=== PATIENT | male | born 1945 | race Caucasian/White ===

== ENCOUNTER 2016-12-11 18:57 | Emergency (ER) | payer OTHER ==
[2016-12-11 19:03] VITALS: BP 197/101; BMI 38.7
--- NOTE | 2016-12-11 19:31 | DR.GENAD ---
HPI - HPI Comment HPI Comment: SUDDENLY STARTED FEW HOURS AGO. NO MED TAKEN. NO FEVER OR DYSURAI. - Complaint/Symptoms Chief Complaint Doctors Comments: LEFT FLANK PAIN RADIATING TO LEFT LOWER ABDOMEN. Chief Complaint:: PT C/O BACK PAIN RADIATING TO HIS LLQ. NAUSEA BUT NO VOMITING. - Nurses notes reviewed Nurses Notes Review: Yes - Source History Provided: Patient - Mode of Arrival Mode of Arrival: Ambulatory - Timing Onset of Chief Complaint: 12/11/16 Came on: Suddenly - Duration Duration: Constant Duration: Hours - Severity Severity: Moderate PMH - PMH Past Medical History: Yes Past Medical History: Dyslipidemia, Hypertension Past Surgical History: No - Family History History of Family Medical Conditions: Yes Family Medical History: Diabetes Mellitus, Cancer, [place], Hypertension - infectious screening Have you traveled outside the country in the last 6 months?: No ROS - Review of Systems Constitutional: No Symptoms Reported Eyes: No Symptoms Reported ENTM: No Symptoms Reported Respiratoy: No Symptoms Reported Cardiovascular: No Symptoms Reported Genitourinary: No Symptoms Reported Neurological: No Symptoms Reported Musculoskeletal: Back Pain, Back Integumentary: No Symptoms Reported Hematologic/Lymphatic: No Symptoms Reported Endocrine: No Symptoms Reported All Other Systems: Reviewed and Negative PE - Vital Signs Vitals: Temperature 97.5 F Pulse Rate 78 Respiratory Rate 18 Blood Pressure 197/101 O2 Sat by Pulse Oximetry 98 - General Limitations: No Limitations General Appearance: Alert - Head Head Exam: Normal Inspection - Eyes Eye exam: Normal Appearance - ENT ENT Exam: Normal External Ear Exam External Ear Exam: Normal External Inspection TM/Canal Exam: Bilateral Normal Nose Exam: Normal Nose Exam Mouth Exam: Normal Inspection Throat Exam: Normal Inspection - Neck Neck Exam: Normal Inspection - Chest Chest Inspection: Symmetric Chest Wall Rise - Respiratory Respiratory Exam: Normal Lung Sounds Bilat Respiratory Exam: Bilateral Clear to Auscultation - Cardiovascular Cardiovascular Exam: Regular Rate, Normal Rhythm, Normal Heart Sounds - Abdominal Exam Abdominal Exam: Normal Bowel Sounds, Soft. negative: Tenderness - Extremities Extremities Exam: Normal Inspection - Back Back Exam: Normal Inspection - Neurologic Neurological Exam: Alert, Oriented X3 - Psychiatric Psychiatric Exam: Anxious - Skin Skin Exam: Normal Color MDM - Additional Information Additional Information Obtained From: Family - Differential Diagnosis Differential Diagnosis: LEFT FLANK PAIN, KIDNEY STONE, UTI Course - Treatment Treatment: SEE ORDER. IV FLUIDS AND IVPAIN MED IN ED. - Reevaluation 1st: Improved - Education/Counseling Education/Counseling: Patient, Family, Education Educated On: Treatment, Diagnosis, Needs for Follow Up ROR - Labs Reviewed Laboratory Results Reviewed?: Yes Result Diagrams: 12/11/16 19:52 12/11/16 19:52 Laboratory: WBC 9.9 X10^3/uL (3.6-10.0) 12/11/16 19:52 RBC 5.04 X10^6/uL (4.7-6.0) 12/11/16 19:52 Hgb 15.1 g/dL (13.5-18.0) 12/11/16 19:52 Hct 42.8 % (42.0-54.0) 12/11/16 19:52 MCV 84.9 fL (80.0-100.0) 12/11/16 19:52 MCH 30.0 pg (27.0-34.0) 12/11/16 19:52 MCHC 35.3 g/dL (33.0-35.0) H 12/11/16 19:52 RDW 13.2 % (11.6-16.5) 12/11/16 19:52 Plt Count 187 X10^3/uL (150.0-450.0) 12/11/16 19:52 MPV 7.6 fL (7.4-11.0) 12/11/16 19:52 Neut % 76.2 % (42.0-75.0) H 12/11/16 19:52 Lymph % 14.6 % (21.0-51.0) L 12/11/16 19:52 [place] % 6.3 % (0.0-13.0) 12/11/16 19:52 Eos % 2.2 % (0.9-2.9) 12/11/16 19:52 Baso % 0.7 % (0.2-1.0) 12/11/16 19:52 Neut # 7.6 x10^3/uL (2.2-4.8) H 12/11/16 19:52 Lymph # 1.5 X10^3/uL (1.3-2.9) 12/11/16 19:52 [place] # 0.6 x10^3/uL (0.3-0.8) 12/11/16 19:52 Eos # 0.2 x10^3/uL (0.0-0.2) 12/11/16 19:52 Baso # 0.1 X10^3/uL (0.0-0.1) 12/11/16 19:52 Absolute Nucleated RBC 0.1 /100WBC 12/11/16 19:52 Sodium 141 mmol/L (136-145) 12/11/16 19:52 Corrected Sodium 142 mmol/L (136-145) 12/11/16 19:52 Potassium 4.0 mmol/L (3.5-5.1) 12/11/16 19:52 Chloride 105 mmol/L (98-107) 12/11/16 19:52 Carbon Dioxide 29.5 mmol/L (21-32) 12/11/16 19:52 BUN 18 mg/dL (7-18) 12/11/16 19:52 Creatinine 1.28 mg/dL (0.70-1.30) 12/11/16 19:52 Est GFR (MDRD) Af Amer > 60 (>60) 12/11/16 19:52 Est GFR (MDRD) Non-Af 59 (>60) 12/11/16 19:52 Glucose 147 mg/dL (65-99) H 12/11/16 19:52 Calcium 8.9 mg/dL (8.5-10.1) 12/11/16 19:52 Corrected Calcium TNP 12/11/16 19:52 Total Bilirubin 1.00 mg/dL (0.2-1.0) 12/11/16 19:52 AST 28 Units/L (15-37) 12/11/16 19:52 ALT 47 Units/L (12-78) 12/11/16 19:52 Alkaline Phosphatase 59 Units/L (46-116) 12/11/16 19:52 Total Protein 7.3 g/dL (6.4-8.2) 12/11/16 19:52 Albumin 3.8 g/dL (3.4-5.0) 12/11/16 19:52 Globulin 3.5 g/dL (2.5-4.5) 12/11/16 19:52 Albumin/Globulin Ratio 1.1 Ratio (1.1-2.1) 12/11/16 19:52 Specimen Type Clean catch urine 12/11/16 19:52 Urine Color [place] (YELLOW) 12/11/16 19:52 Urine Appearance Slightly hazy (CLEAR) 12/11/16 19:52 Urine pH 6.0 (5.0 - 8.0) 12/11/16 19:52 Ur Specific [place] 1.020 (1.000-1.030) 12/11/16 19:52 Urine Protein 2+ (NEGATIVE) 12/11/16 19:52 Urine Glucose (UA) Negative (NEGATIVE) 12/11/16 19:52 Urine Ketones Negative (NEGATIVE) 12/11/16 19:52 Urine Occult Blood 5+ (NEGATIVE) 12/11/16 19:52 Urine Nitrite Negative (NEGATIVE) 12/11/16 19:52 Urine Bilirubin Negative (NEGATIVE) 12/11/16 19:52 Urine Urobilinogen 2+ (NORMAL) 12/11/16 19:52 Ur Leukocyte Esterase 1+ (NEGATIVE) 12/11/16 19:52 Urine RBC Tntc /HPF (NEGATIVE) 12/11/16 19:52 Urine WBC 0-3 /HPF (NEGATIVE) 12/11/16 19:52 Ur Squamous Epith Cells Rare /HPF (NEGATIVE) 12/11/16 19:52 Urine Bacteria Trace /HPF (NEGATIVE) 12/11/16 19:52 Urine Mucus Moderate /HPF (NEGATIVE) 12/11/16 19:52 Ur Culture Indicated? No/not indicated 12/11/16 19:52 - XRAY XRAY Interpreted by: Radiologist XRAY Findings: REPORT DISCUSS WITH PATIENT. - Diagnosis Discharge Problem: Left flank pain, Left ureteral stone - Discharge Plan Disposition: 01 HOME, SELF-CARE Condition: Stable Prescriptions: Hydrocodone/Acetaminophen [Hydrocodone/Acetaminophen 7.5-325 mg] 1 tab PO Q6H PRN #15 tab PRN Reason: Pain Ketorolac Tromethamine [Toradol Tab] 10 mg PO Q8H PRN #20 tab PRN Reason: Pain Tamsulosin HCl [Flomax] 0.4 mg PO DAILY #10 cap - Follow ups/Referrals Follow ups/Referrals: FANNY PINZON [Primary Care Provider] - 3 days - Instructions Instructions: Kidney Stones, [id number] Additional Instructions: RETURN TO ED IF WORSE. SEE DR. MORILLO IN THE MORNING. YISEL OFFICE NUMBER .
[2016-12-11] MEDS ORDERED: ZOFRAN INJ 4 MG VIAL IVP ONE (19:45)
[2016-12-11] MEDS ORDERED: NS 1000 ML 1,000 ML ONE (19:45)
[2016-12-11] MEDS ORDERED: TORADOL 30 MG VIAL IVP ONE (19:45)
[2016-12-11] MEDS ORDERED: NS 1000 ML 1,000 ML IV ONE (19:46)
[2016-12-11] MEDS ORDERED: ZOFRAN INJ 4 MG VIAL ONE (19:57)
[2016-12-11] MEDS ORDERED: TORADOL 30 MG VIAL ONE (19:57)
[2016-12-11 20:05] LABS: BASOPHILS # (AUTO) 0.1 X10^3/uL (0.0-0.1); BASOPHILS % (AUTO) 0.7 % (0.2-1.0); EOSINOPHILS # (AUTO) 0.2 x10^3/uL (0.0-0.2); EOSINOPHILS % (AUTO) 2.2 % (0.9-2.9); HEMATOCRIT 42.8 % (42.0-54.0); HEMOGLOBIN 15.1 g/dL (13.5-18.0); LYMPHOCYTES # (AUTO) 1.5 X10^3/uL (1.3-2.9); LYMPHOCYTES % (AUTO) 14.6 % (21.0-51.0); MEAN CORPUSCULAR HGB CONC 35.3 g/dL (33.0-35.0); MEAN CORPUSCULAR VOLUME 84.9 fL (80.0-100.0); MEAN PLATELET VOLUME 7.6 fL (7.4-11.0); MONOCYTES # (AUTO) 0.6 x10^3/uL (0.3-0.8); MONOCYTES % (AUTO) 6.3 % (0.0-13.0); NEUTROPHILS # (AUTO) 7.6 x10^3/uL (2.2-4.8); NEUTROPHILS % (AUTO) 76.2 % (42.0-75.0); PLATELET COUNT 187 X10^3/uL (150.0-450.0); RED BLOOD COUNT 5.04 X10^6/uL (4.7-6.0); RED CELL DISTRIBUTION WIDTH 13.2 % (11.6-16.5); WHITE BLOOD COUNT 9.9 X10^3/uL (3.6-10.0)
[2016-12-11 20:06] LABS: BILIRUBIN,URINE NEGATIVE (NEGATIVE); BLOOD/HEMOGLOBIN,URINE 5+ (NEGATIVE); GLUCOSE, URINE NEGATIVE (NEGATIVE); KETONES,URINE NEGATIVE (NEGATIVE); LEUKOCYTE ESTERASE ,URINE 1+ (NEGATIVE); NITRITES,URINE NEGATIVE (NEGATIVE); PROTEIN,URINE 2+ (NEGATIVE); UROBILINOGEN,URINE 2+ (NORMAL)
[2016-12-11 20:17] LABS: ALANINE AMINOTRANSFERASE 47 Units/L (12-78); ALBUMIN 3.8 g/dL (3.4-5.0); ALKALINE PHOSPHATASE 59 Units/L (46-116); ASPARTATE AMINO TRANSFERASE 28 Units/L (15-37); BLOOD UREA NITROGEN 18 mg/dL (7-18); CALCIUM 8.9 mg/dL (8.5-10.1); CARBON DIOXIDE 29.5 mmol/L (21-32); CHLORIDE 105 mmol/L (98-107); COR NA(FOR HYPERGLY) 142 mmol/L (136-145); CREATININE 1.28 mg/dL (0.70-1.30); SODIUM 141 mmol/L (136-145); TOTAL PROTEIN 7.3 g/dL (6.4-8.2); eGFR BLACK RACES > 60 (>60); eGFR NON BLACK RACES 59 (>60)
[2016-12-11 20:22] LABS: APPEARANCE,URINE SLIGHTLY HAZY (CLEAR); COLOR,URINE AMBER (YELLOW); RBC,URINE TNTC /HPF (NEGATIVE)
[2016-12-11 20:23] LABS: BACTERIA,URINE TRACE /HPF (NEGATIVE); MUCUS,URINE MODERATE /HPF (NEGATIVE); SQUAMOUS EPITHELIAL CELL,UR RARE /HPF (NEGATIVE)
--- NOTE | 2016-12-11 20:40 | CT ---
HISTORY: Left flank pain Study: CT abdomen pelvis without contrast Comparison: None Technique: Axial noncontrast images with coronal and sagittal reformats. Dose reduction procedures we re used with mA/kv adjusted for body size. Findings: The lung bases are clear. The liver, spleen, adrenal glands, and pancreas are within normal limits to the limitations of an unenhanced examination. No opaque stones are visible within the gallbladder. T he right kidney is unobstructed and without stones. No right ureteral calculi are identified. There i s mild left-sided hydroureteronephrosis proximal to a 2 mm calculus located about 2 cm proximal to th e left ureterovesical junction. No intraperitoneal or retroperitoneal lymphadenopathy of significance is present. Calcific atherosclerotic change is present in a nondilated abdominal aorta. The appendix is normal. There are no findings suggestive of diverticulitis or colitis. Examination of the pelvis demonstrated no evidence for pelvic masses, pelvic fluid, or pelvic lymphadenopathy. No bladder abnor mality is identified. No lytic or blastic skeletal lesions are identified. IMPRESSION: 2 mm obstructing distal left ureteral calculus located approximately 2 cm proximal to the left ureter ovesical junction Reported By:
[2016-12-11] MEDS ORDERED: DEMEROL INJ IVP ONE (21:52)
[2016-12-11] MEDS ORDERED: FLOMAX PO ONE (21:55)
[2016-12-11] MEDS ORDERED: DEMEROL INJ ONE (21:56)
== END 2016-12-11 22:25 | disposition home or self-care (01) ==
LOC: ER 19:16
DX: N20.1 Calculus of ureter (principal); R10.84 Generalized abdominal pain
CPT/HCPCS: 36415; 74176; 80053; 81001; 85025; 96365; 96374; 96375; 99283; A4222; J1885; J2175; J2405

== ENCOUNTER 2017-06-21 20:30 | Inpatient (IN) | payer OTHER ==
[2017-06-21] MEDS ORDERED: ROCEPHIN 1 GM IV PREMIX 1 GM/50 ML IV.SOLN. IV ONE ×2 (21:18→21:28)
--- NOTE | 2017-06-21 21:21 | DR.GENAD ---
HPI - PCP Primary Care Physician: Fanny ColónSimonton) - Complaint/Symptoms Chief Complaint Doctors Comments: Patient states he was sent from [facility] for an abscess on his right thigh and new onset Atrial fribrillation. States he has had an abscess in the right groing for the past seven days getting worst with pain when he moves his right leg and walk. States he saw his doctor 2-3 days ago and he told him he has a pulled muscle . States he has not been taking any antibiotics. States he has been having chills but no fever. He has had a cough with increased congestion. States he drinks about a gallon of sweat tea bernardo but denies tobacco or alcohol usage. States he has not had any problems with his heart before but has had a stress test two years ago that was normal. States he has had a 81mg aspirin today. Chief Complaint:: C/O being weak and sleeping a lot these last couple of days - Nurses notes reviewed Nurses Notes Review: Yes - Source History Provided: Patient - Mode of Arrival Mode of Arrival: Ambulatory - Timing Onset of Chief Complaint: 06/19/17 Came on: Gradually - Duration Duration: Constant How lon Duration: Days - Location Location: right groin lesion - Severity Severity: Moderate - Modifying Factors Worsens:: walking and standing Improves:: nothing PMH - PMH Past Medical History: Yes Past Medical History: Dyslipidemia, Hypertension Past Surgical History: No - Family History History of Family Medical Conditions: Yes Family Medical History: Diabetes Mellitus, Cancer, Coronary Artery Disease, Hypertension - Social History Does patient currently use any type of tobacco product: No Have you used tobacco products in the last 12 months: No Type of Tobacco Use: None How many years tobacco product used: 30 Does any household member use tobacco: No Alcohol Use: None Do you use any recreational Drugs:: No Lives With: Family Lives Where: Home - infectious screening In the last 2 months have you had wt loss of >10#?: NO Have you had fever, night sweats or hemotysis?: No Have you traveled outside the country in the last 6 months?: No Isolation: Standard ROS - Review of Systems Constitutional: No Symptoms Reported, Chills, Weakness. negative: See HPI, Diaphoresis, Fever, Malaise, Irritable, Fatigue, Loss of Appetite, Other Eyes: No Symptoms Reported. negative: See HPI, Eye Pain, Blurred Vision, Tearing, Discharge, Photophobia, Diplopia, Other ENTM: No Symptoms Reported Respiratoy: Productive Cough, Short of Breath. negative: No Symptoms Reported, See HPI, Non-Productive Cough, Moist Cough, Dry Cough, Hacking Cough, Barking Cough, Brassy Cough, Orthopnea, Stridor, Wheezing, Hemoptysis, Other Cardiovascular: No Symptoms Reported. negative: See HPI, Chest Pain, Edema, Palpitations, Syncope, Cyanosis, Skin Mottling, Other Gastrointestinal/Abdominal: No Symptoms Reported. negative: See HPI, Abdominal Pain, Constipation, Diarrhea, Nausea, Vomiting, Food Intolerance, Other Genitourinary: No Symptoms Reported. negative: See HPI, Discharge, Dysuria, Frequency, Hematuria, Pain, Bleeding, Other Neurological: No Symptoms Reported, Weakness, Problems Walking (right leg and groin pain). negative: See HPI, Anxiety, Depressed, Emotional Problems, Headache, Numbness, Paresthesia, Pre-existing Deficit, Seizure, Tingling, Tremors, Dizziness, Speech Problem, Other Musculoskeletal: No Symptoms Reported, Right, Pelvis (swelling) Integumentary: No Symptoms Reported, Lumps (right groin swelling) Hematologic/Lymphatic: No Symptoms Reported. negative: See HPI, Anemia, Blood Clots, Easy Bleeding, Easy Bruising, Swollen Glands, Lymphadenopathy, Other Endocrine: No Symptoms Reported. negative: See HPI, Excessive Sweating, Flushing, Intolerance to Cold, Intolerance to Heat, Increased Hunger, Increased Thirst, Increased Urine, Unexplained Weight Gain, Unexplained Weight Loss, Failure to Thrive, Decreased Appetite, Other Psychiatric: No Symptoms Reported. negative: See HPI, Anxiety, Depression, Hallucinations, Excessive crying, Suicidal, Other PE - Vital Signs Vitals: Temperature 99.6 F Pulse Rate 135 Respiratory Rate 24 Blood Pressure 141/80 O2 Sat by Pulse Oximetry 94 - General Limitations: No Limitations General Appearance: Alert, In Distress (moderate) - Head Head Exam: Normal Inspection, Atraumatic, Normocephalic - Eyes Eye exam: Normal Appearance, PERRL, EOMI. negative: Scleral Icterus, Conjunctival Injection, Nystagmus, Miosis, Mydrasis, Periorbital Swelling, Periorbital Tenderness, Other - ENT ENT Exam: Normal Exam, Normal Oropharynx, Normal External Ear Exam, Mucous Membranes Moist, TM's Normal Bilaterally External Ear Exam: Normal External Inspection TM/Canal Exam: Bilateral Normal Nose Exam: Normal Nose Exam Mouth Exam: Normal Inspection. negative: Drooling, Trismus, Lip Swelling, Tongue Elevation, Tongue Swelling, Laceration, Other Throat Exam: Normal Inspection. negative: Tonsillar Erythema, Tonsillomegaly, Tonsillar Exudate, R Peritonsillar Mass, L Peritonsillar Mass, Muffled Voice, Other - Neck Neck Exam: Normal Inspection, Full ROM, Trachea Midline. negative: Tenderness, Meningismus, Lymphadenopathy, Thyromegaly, Other - Chest Chest Inspection: Normal Inspection, Symmetric Chest Wall Rise - Respiratory Respiratory Exam: Normal Lung Sounds Bilat. negative: Accessory Muscle Use, Chest Wall Tenderness, Prolonged Expiratory Phase, Respiratory Distress, Stridor , Other Respiratory Exam: Bilateral Clear to Auscultation - Cardiovascular Cardiovascular Exam: Regular Rate, Normal Rhythm, Irregular Rhythm, Normal Heart Sounds, Systolic Murmur. negative: Bradycardia, Tachycardia, Diastolic Murmur, Rubs, Gallop, Clicks, JVD, +S1, +S2, +S3, +S4, Other - Abdominal Exam Abdominal Exam: Normal Inspection, Normal Bowel Sounds, Soft, Tenderness (right groing with large 7-8 cm erythema with bullous lesion in center 4-5 cm; tender; no discharge) Abdominal Tenderness: RLQ, Moderate - Extremities Extremities Exam: Normal Inspection, Full ROM, Tenderness (right groing abscess ; tender), Normal Capillary Refill. negative: Edema, Joint Swelling, Calf Tenderness, Other - Back Back Exam: Normal Inspection, Full ROM, Tenderness. negative: (R) CVA Tenderness, (L) CVA Tenderness, Muscle Spasm, Paraspinal Tenderness, Vertebral Tenderness, Rashes, (R) Sciatic Notch Tenderness, (L) Sciatic Notch Tendern, (R ) Straight Leg Raise, (L) Straight Leg Raise, Other - Neurologic Neurological Exam: Alert, Oriented X3, CN II-XII Intact, Reflexes Normal. negative: Normal Gait (gait not tested) - Psychiatric Psychiatric Exam: Normal Affect, Normal Mood. negative: Depressed, Agitated, Anxious, Flat Affect, Manic, Homicidal Ideation, Suicidal Ideation, Other - Skin Skin Exam: Warm, Dry, Intact, Normal Color Course - Consultation Called: 00:19 Call Returned: 00:19 (Dr. Shaw to admit) - Education/Counseling Education/Counseling: Patient, Family Educated On: Treatment, Diagnosis, Prognosis, Needs for Follow Up ROR - Labs Reviewed Laboratory Results Reviewed?: Yes (all labs and x-ray results reviewed and discussed with patient) Result Diagrams: 06/21/17 21:28 06/21/17 21: Laboratory: WBC 19.5 X10^3/uL (3.6-10.0) H 06/21/17 21: RBC 4.79 X10^6/uL (4.7-6.0) 06/21/17 21:28 Hgb 14.3 g/dL (13.5-18.0) 06/21/17 21:28 Hct 40.5 % (42.0-54.0) L 06/21/17 21: MCV 84.6 fL (80.0-100.0) 06/21/17 21: MCH 29.9 pg (27.0-34.0) 06/21/17 21: MCHC 35.4 g/dL (33.0-35.0) H 06/21/17 21: RDW 13.3 % (11.6-16.5) 06/21/17 21:28 Plt Count 282 X10^3/uL (150.0-450.0) 06/21/17 21: MPV 7.5 fL (7.4-11.0) 06/21/17 21:28 Neut % (Auto) 79.9 % (42.0-75.0) H 06/21/17 21: Lymph % (Auto) 9.4 % (21.0-51.0) L 06/21/17 21:28 [place] % (Auto) 9.4 % (0.0-13.0) 06/21/17 21:28 Eos % (Auto) 0.7 % (0.9-2.9) L 06/21/17 21:28 Baso % (Auto) 0.6 % (0.2-1.0) 06/21/17 21:28 Neut # (Auto) 15.6 x10^3/uL (2.2-4.8) H 06/21/17 21:28 Lymph # (Auto) 1.8 X10^3/uL (1.3-2.9) 06/21/17 21:28 [place] # (Auto) 1.8 x10^3/uL (0.3-0.8) H 06/21/17 21:28 Eos # (Auto) 0.1 x10^3/uL (0.0-0.2) 06/21/17 21:28 Baso # (Auto) 0.1 X10^3/uL (0.0-0.1) 06/21/17 21:28 Absolute Nucleated RBC 0.0 /100WBC 06/21/17 21:28 INR Target Range - 06/21/17 21:28 INR 1.21 (0.8-1.3) 06/21/17 21:28 APTT 36.5 SECONDS (22.9-36.5) 06/21/17 21:28 PTT Comment - 06/21/17 21:28 Sodium 135 mmol/L (136-145) L 06/21/17 21:28 Corrected Sodium 136 mmol/L (136-145) 06/21/17 21:28 Potassium 3.6 mmol/L (3.5-5.1) 06/21/17 21:28 Chloride 98 mmol/L (98-107) 06/21/17 21:28 Carbon Dioxide 24.5 mmol/L (21-32) 06/21/17 21:28 BUN 26 mg/dL (7-18) H 06/21/17 21:28 Creatinine 1.47 mg/dL (0.70-1.30) H 06/21/17 21:28 Est GFR (MDRD) Af Amer > 60 (>60) 06/21/17 21:28 Est GFR (MDRD) Non-Af 50 (>60) L 06/21/17 21:28 Glucose 153 mg/dL (65-99) H 06/21/17 21:28 Lactic Acid 1.7 mmol/L (0.4-2.0) 06/21/17 21:28 Calcium 8.9 mg/dL (8.5-10.1) 06/21/17 21:28 Corrected Calcium 9.5 mg/dL (8.5-10.1) 06/21/17 21:28 Magnesium 1.9 mg/dL (1.7-2.9) 06/21/17 21:28 Total Bilirubin 2.00 mg/dL (0.2-1.0) H 06/21/17 21:28 AST 17 Units/L (15-37) 06/21/17 21:28 ALT 24 Units/L (12-78) 06/21/17 21:28 Alkaline Phosphatase 58 Units/L (46-116) 06/21/17 21:28 Creatine Kinase 156 Units/L (39-308) 06/21/17 21:28 CK-MB (CK-2) < 1.0 ng/mL (0-4.0) 06/21/17 21:28 CK/CKMB % Calc 0.6 % (<4) 06/21/17 21:28 Troponin I < 0.02 ng/mL (0-1.5) 06/21/17 21:28 Total Protein 8.1 g/dL (6.4-8.2) 06/21/17 21:28 Albumin 3.2 g/dL (3.4-5.0) L 06/21/17 21:28 Globulin 4.9 g/dL (2.5-4.5) H 06/21/17 21:28 Albumin/Globulin Ratio 0.7 Ratio (1.1-2.1) L 06/21/17 21:28 Free T4 1.28 ng/dL (0.76-1.46) 06/21/17 21:28 TSH 3rd Generation 1.877 uIU/mL (0.358-3.74) 06/21/17 21:28 - XRAY XRAY Interpreted by: Radiologist (CXR: Cardiomegaly without other acute cardiopulmonary process) - Diagnosis Discharge Problem: Cellulitis of right thigh, Abscess of right thigh, Hyperglycemia Atrial fibrillation Qualifiers: Atrial fibrillation type: unspecified Qualified Code(s): I48.91 - Unspecified atrial fibrillation - Discharge Plan Disposition: ADMITTED INPATIENT Condition: Stable - Follow ups/Referrals Follow ups/Referrals: FANNY PINZON [Primary Care Provider] - 3 days - Instructions
--- NOTE | 2017-06-21 21:28 | RAD ---
HISTORY: 71-year-old male with weakness and lethargy. Patient complains of chest pain. Study: Frontal view of the chest. Comparison: None. Findings: Study limited secondary to patient positioning and body habitus. The trachea is midline. The cardiac silhouette is enlarged with low lung volumes. The lungs are brianna ar without focal consolidation, effusion or pneumothorax. Soft tissues are unremarkable. Osseous str uctures are unremarkable. IMPRESSION: 1. Cardiomegaly without other acute cardiopulmonary process. Reported By:
[2017-06-21] MEDS: NS 1000 ML 1,000 ML IV SCH (21:35)
[2017-06-21 21:45] LABS: BASOPHILS # (AUTO) 0.1 X10^3/uL (0.0-0.1); BASOPHILS % (AUTO) 0.6 % (0.2-1.0); EOSINOPHILS # (AUTO) 0.1 x10^3/uL (0.0-0.2); EOSINOPHILS % (AUTO) 0.7 % (0.9-2.9); HEMATOCRIT 40.5 % (42.0-54.0); HEMOGLOBIN 14.3 g/dL (13.5-18.0); LYMPHOCYTES # (AUTO) 1.8 X10^3/uL (1.3-2.9); LYMPHOCYTES % (AUTO) 9.4 % (21.0-51.0); MEAN CORPUSCULAR HEMOGLOBIN 29.9 pg (27.0-34.0); MEAN CORPUSCULAR HGB CONC 35.4 g/dL (33.0-35.0); MEAN CORPUSCULAR VOLUME 84.6 fL (80.0-100.0); MEAN PLATELET VOLUME 7.5 fL (7.4-11.0); MONOCYTES # (AUTO) 1.8 x10^3/uL (0.3-0.8); MONOCYTES % (AUTO) 9.4 % (0.0-13.0); NEUTROPHILS # (AUTO) 15.6 x10^3/uL (2.2-4.8); NEUTROPHILS % (AUTO) 79.9 % (42.0-75.0); PLATELET COUNT 282 X10^3/uL (150.0-450.0); RED BLOOD COUNT 4.79 X10^6/uL (4.7-6.0); RED CELL DISTRIBUTION WIDTH 13.3 % (11.6-16.5); WHITE BLOOD COUNT 19.5 X10^3/uL (3.6-10.0)
[2017-06-21 22:06] LABS: BLOOD UREA NITROGEN 26 mg/dL (7-18); CALCIUM 8.9 mg/dL (8.5-10.1); CARBON DIOXIDE 24.5 mmol/L (21-32); CHLORIDE 98 mmol/L (98-107); COR NA(FOR HYPERGLY) 136 mmol/L (136-145); CREATININE 1.47 mg/dL (0.70-1.30); SODIUM 135 mmol/L (136-145); TROPONIN I < 0.02 ng/mL (0-1.5); eGFR BLACK RACES > 60 (>60); eGFR NON BLACK RACES 50 (>60)
[2017-06-21 22:07] LABS: ALANINE AMINOTRANSFERASE 24 Units/L (12-78); ALBUMIN 3.2 g/dL (3.4-5.0); ALKALINE PHOSPHATASE 58 Units/L (46-116); ASPARTATE AMINO TRANSFERASE 17 Units/L (15-37); CKMB % 0.6 % (<4); COR CA(FOR HYPOALB) 9.5 mg/dL (8.5-10.1); CREATINE KINASE 156 Units/L (39-308); CREATINE KINASE MB < 1.0 ng/mL (0-4.0); FREE T4 (FREE THYROXINE) 1.28 ng/dL (0.76-1.46); MAGNESIUM 1.9 mg/dL (1.7-2.9); TOTAL PROTEIN 8.1 g/dL (6.4-8.2); TSH (3RD GENERATION) 1.877 uIU/mL (0.358-3.74)
[2017-06-22] MEDS ORDERED: LOVENOX INJ 120 MG SYR SC STA (00:13)
[2017-06-22] MEDS ORDERED: LOVENOX INJ 120 MG SYR SC ONE (00:17)
[2017-06-22] MEDS ORDERED: PHENERGAN TAB 25 MG PO PRN (00:43)
[2017-06-22] MEDS ORDERED: HumuLIN R SC PRN (00:47)
[2017-06-22] MEDS ORDERED: VANCOMYCIN HCL 1 GM VIAL 1 GM in D5W 250 ML IV 250 ML IV SCH (01:00)
[2017-06-22 02:32] VITALS: BMI 39.6
[2017-06-22] MEDS ORDERED: NS 1/2 1000 ML IV 1,000 ML IV ONE ×2 (02:32→17:25)
[2017-06-22] MEDS: NS 1/2 1000 ML IV 1,000 ML IV SCH ×3 (03:57→17:33)
[2017-06-22] MEDS ORDERED: VANCOMYCIN 1 GM PREMIX (ADDVANTAGE) 250 ML IV ONE (04:00)
[2017-06-22 06:04] LABS: BILIRUBIN,URINE NEGATIVE (NEGATIVE); BLOOD/HEMOGLOBIN,URINE NEGATIVE (NEGATIVE); GLUCOSE, URINE NEGATIVE (NEGATIVE); KETONES,URINE 1+ (NEGATIVE); LEUKOCYTE ESTERASE ,URINE NEGATIVE (NEGATIVE); NITRITES,URINE NEGATIVE (NEGATIVE); PROTEIN,URINE 1+ (NEGATIVE); UROBILINOGEN,URINE 1+ (NORMAL)
[2017-06-22 06:08] LABS: BASOPHILS # (AUTO) 0.1 X10^3/uL (0.0-0.1); BASOPHILS % (AUTO) 0.6 % (0.2-1.0); EOSINOPHILS # (AUTO) 0.2 x10^3/uL (0.0-0.2); HEMATOCRIT 38.4 % (42.0-54.0); HEMOGLOBIN 13.7 g/dL (13.5-18.0); LYMPHOCYTES # (AUTO) 2.3 X10^3/uL (1.3-2.9); LYMPHOCYTES % (AUTO) 13.9 % (21.0-51.0); MEAN CORPUSCULAR HEMOGLOBIN 30.1 pg (27.0-34.0); MEAN CORPUSCULAR HGB CONC 35.7 g/dL (33.0-35.0); MEAN CORPUSCULAR VOLUME 84.4 fL (80.0-100.0); MEAN PLATELET VOLUME 8.1 fL (7.4-11.0); MONOCYTES # (AUTO) 1.3 x10^3/uL (0.3-0.8); NEUTROPHILS # (AUTO) 12.5 x10^3/uL (2.2-4.8); NEUTROPHILS % (AUTO) 76.5 % (42.0-75.0); PLATELET COUNT 237 X10^3/uL (150.0-450.0); RED BLOOD COUNT 4.55 X10^6/uL (4.7-6.0); RED CELL DISTRIBUTION WIDTH 13.2 % (11.6-16.5); WHITE BLOOD COUNT 16.4 X10^3/uL (3.6-10.0)
[2017-06-22 06:11] LABS: APPEARANCE,URINE CLEAR (CLEAR); BACTERIA,URINE NEGATIVE /HPF (NEGATIVE); COLOR,URINE AMBER (YELLOW); RBC,URINE 0-2 /HPF (NONE SEEN); SQUAMOUS EPITHELIAL CELL,UR RARE /HPF (NEGATIVE)
[2017-06-22] MEDS: MORPHINE SULFATE INJ 2 MG INJ IVP PRN ×2 (06:13→17:28)
[2017-06-22] MEDS: ZOSYN VIAL 3.375 GM 3.375 GM in NS 100 ML IV + SPIKE MINIBAG* 100 ML IV SCH ×3 (06:13→21:20)
[2017-06-22 06:29] LABS: ALANINE AMINOTRANSFERASE 23 Units/L (12-78); ALBUMIN 2.8 g/dL (3.4-5.0); ALKALINE PHOSPHATASE 58 Units/L (46-116); ASPARTATE AMINO TRANSFERASE 16 Units/L (15-37); BLOOD UREA NITROGEN 25 mg/dL (7-18); CALCIUM 8.3 mg/dL (8.5-10.1); CARBON DIOXIDE 23.5 mmol/L (21-32); CHLORIDE 101 mmol/L (98-107); COR CA(FOR HYPOALB) 9.3 mg/dL (8.5-10.1); COR NA(FOR HYPERGLY) 136 mmol/L (136-145); CREATININE 1.18 mg/dL (0.70-1.30); SODIUM 136 mmol/L (136-145); TOTAL PROTEIN 7.5 g/dL (6.4-8.2); eGFR BLACK RACES > 60 (>60); eGFR NON BLACK RACES > 60 (>60)
[2017-06-22] MEDS ORDERED: XYLOCAINE 1 % (PLAIN) ONE (11:08)
--- NOTE | 2017-06-22 11:47 | OR.GENERIC ---
Post-Op Note Generic - Post-Op Note Operative Report: I & D of Rt groin abscess was done at bedside .. large amount of purulent material was evacuated and cultured.. the cavity was packed with iodoform .. to change dressing daily and as needed .
[2017-06-22] MEDS: VANCOMYCIN HCL 1 GM VIAL 1 GM in D5W 250 ML IV 250 ML IV SCH (17:30)
[2017-06-22] MEDS: LOVENOX INJ 60 MG SYR SC SCH (21:21)
[2017-06-22] MEDS: MOTRIN TAB 600 MG PO PRN (21:22)
[2017-06-23] MEDS ORDERED: NS 1/2 1000 ML IV 1,000 ML IV ONE ×2 (02:04→20:34)
[2017-06-23] MEDS: VANCOMYCIN HCL 1 GM VIAL 1 GM in D5W 250 ML IV 250 ML IV SCH ×2 (03:48→17:41)
[2017-06-23] MEDS: NS 1/2 1000 ML IV 1,000 ML IV SCH ×3 (03:48→20:41)
[2017-06-23 05:37] LABS: ALANINE AMINOTRANSFERASE 28 Units/L (12-78); ALBUMIN 2.8 g/dL (3.4-5.0); ALKALINE PHOSPHATASE 55 Units/L (46-116); ASPARTATE AMINO TRANSFERASE 19 Units/L (15-37); BLOOD UREA NITROGEN 19 mg/dL (7-18); CALCIUM 8.5 mg/dL (8.5-10.1); CARBON DIOXIDE 27.9 mmol/L (21-32); CHLORIDE 100 mmol/L (98-107); COR CA(FOR HYPOALB) 9.5 mg/dL (8.5-10.1); COR NA(FOR HYPERGLY) 138 mmol/L (136-145); CREATININE 1.25 mg/dL (0.70-1.30); SODIUM 137 mmol/L (136-145); TOTAL PROTEIN 7.8 g/dL (6.4-8.2); eGFR BLACK RACES > 60 (>60); eGFR NON BLACK RACES > 60 (>60)
[2017-06-23 05:43] LABS: BASOPHILS # (AUTO) 0.1 X10^3/uL (0.0-0.1); BASOPHILS % (AUTO) 0.7 % (0.2-1.0); EOSINOPHILS # (AUTO) 0.4 x10^3/uL (0.0-0.2); EOSINOPHILS % (AUTO) 3.1 % (0.9-2.9); HEMATOCRIT 39.4 % (42.0-54.0); HEMOGLOBIN 13.8 g/dL (13.5-18.0); LYMPHOCYTES # (AUTO) 2.8 X10^3/uL (1.3-2.9); LYMPHOCYTES % (AUTO) 22.6 % (21.0-51.0); MEAN CORPUSCULAR HGB CONC 35.1 g/dL (33.0-35.0); MEAN CORPUSCULAR VOLUME 85.5 fL (80.0-100.0); MEAN PLATELET VOLUME 7.9 fL (7.4-11.0); MONOCYTES # (AUTO) 1.1 x10^3/uL (0.3-0.8); NEUTROPHILS # (AUTO) 7.9 x10^3/uL (2.2-4.8); NEUTROPHILS % (AUTO) 64.6 % (42.0-75.0); PLATELET COUNT 249 X10^3/uL (150.0-450.0); RED CELL DISTRIBUTION WIDTH 13.3 % (11.6-16.5); WHITE BLOOD COUNT 12.2 X10^3/uL (3.6-10.0)
[2017-06-23] MEDS: NS 1000 ML 1,000 ML IV SCH ×2 (05:47→09:58)
[2017-06-23] MEDS: MORPHINE SULFATE INJ 2 MG INJ IVP PRN (05:47)
[2017-06-23] MEDS: ZOSYN VIAL 3.375 GM 3.375 GM in NS 100 ML IV + SPIKE MINIBAG* 100 ML IV SCH ×3 (05:47→21:05)
[2017-06-23] MEDS: LOVENOX INJ 60 MG SYR SC SCH ×2 (09:51→20:51)
--- NOTE | 2017-06-23 14:20 | DR.H&P ---
H&P - History & Physical for Day of: H&P Date: 06/22/17 - Chief Complaint Chief Complaint: weakness, right groin abscess, fatigue, new onset atrial fibrillation - Allergies Allergies/Adverse Reactions: Allergies Allergy/AdvReac Type Severity Reaction Status Date / Time No Known Drug Allergies Allergy Verified 12/11/16 20:03 - History of Present Illness History of Present Illness: is a 71 year old patient of [facility] who was referred from [facility] with complaint of abscess to right groin and new onset of A Fib. Patient reports the abscess has been there the past 7 days and is getting worse. Patient reports associated symptoms of chills, cough, congestion, weakness, and fatigue. He does admit to frequent caffine intake, but denies drug or alcohol use. On arrival, vitals are noted to be 99.6, 135, 24 , 97%-141/80. Labs obtained. Abnormal Labs include the following: WBC 19.5, HCT 40.5, SOD 135, BUN 26, Creatinine 1.47, GDF Non Af 50, Glucose 153, Total Bili 2.00, Albumin 3.2, Globulin 4.9, Albumin/Globulin Ratio 0.7. Blood Culture: Pending X 2. Urinalysis: Color [place], protein 1+, Ketones 1+, Urobili 1+, RBC 0- 2, WBC 02. Chest Xray: Cardiomegaly without other acute cardiopulmonary process. EKG: Rate 95, Atrial Fib, Abnormal R Wave Progression, Early transition.Patient will be admitted and treated for cellulitis and new onset of A Fib. Consultation with Dr. Woods for I&D of groin abscess. Patient to receive aggressive IV antibiotic therapy as well as pain management, Patient has received Morphine Sulfate 2mg IV X 1. Patient placed on continuous monitoring engineer and receiving Lovenox 60mg sc BID. We will follow up with labs in the am. - Past Medical History Past Medical History: Dyslipidemia, Hypertension - Family History Family Medical History: Diabetes Mellitus, Cancer, Coronary Artery Disease, Hypertension - Social History Does patient currently use any type of tobacco product: No Have you used tobacco products in the last 12 months: No Type of Tobacco Use: None How many years tobacco product used: 30 Does any household member use tobacco: No Alcohol Use: None Drug Use: None - Medications Home Medications: Aspirin EC [ASPIRIN EC 81 MG *] 81 mg PO DAILY 06/22/17 [History Confirmed 06/22] Naproxen Sodium [Naprelan] 500 mg PO BID 06/22/17 [History Confirmed 06/22/17] Simvastatin [Zocor Tab 20 mg] 20 mg PO HS 06/22/17 [History Confirmed 06/22/17] - Review of Systems Constitutional: Weakness, Malaise Eyes: No Symptoms Reported ENT: Nose Congestion Respiratory: Cough, Shortness of Breath. denies: Sputum, Wheezing Cardiovascular: No Symptoms Reported Gastrointestinal: No Symptoms Reported Genitourinary: No Symptoms Reported Musculoskeletal: No Symptoms Reported Skin: Wound (right groint abscess ) Neurological: Weakness - Physical Exam Vital Signs: Temperature 97.5 F Pulse Rate [Left Brachial] 76 Pulse Rate [Left] 89 Pulse Rate 135 Respiratory Rate 18 Blood Pressure [Left Arm] 108/74 Blood Pressure [Right Arm] 117/67 Blood Pressure 141/80 O2 Sat by Pulse Oximetry 99 Oriented: Normal Eyes: Normal Ear: Normal Nose: Normal Respiratory: Diminished Throughout Cardiovascular: Tachycardia : Normal Auscultation: Bowel Sounds: Normal Palpation: Normal Tenderness: Normal Skin: Red, Tender, Hot, Wound Musculoskeletal: Normal Psychiatric: Normal Mood Description: Calm Affect: Normal Speech Pattern: Clear - Assessment/Plan (1) Atrial fibrillation Qualifiers: Atrial fibrillation type: unspecified Qualified Code(s): I48.91 - Unspecified atrial fibrillation Status: Acute Plan: telemetry, continue to monitor (2) Abscess of right thigh Status: Acute Plan: consult kelsie wolfe, vancomycin, wound cultures, continue to monitor
--- NOTE | 2017-06-23 15:58 | PCM.PROG ---
Progress Note - Progress Note for Day of Date: 06/23/17 - Subjective Subjective: IS BEING TREATED FOR CELLULITIS TO THE RIGHT GROIN. TODAY, HE IS ALERT AND ORIENTED, LYING IN BED ON MORNING ROUNDS. HE CONTINUES WITH PAIN TO THE RIGHT GROIN. HE DENIES OTHER COMPLAINTS. PERFORMED I&D TO ABSCESS IN RIGHT GROIN YESTERDAY. WOULD CULTURE WAS TAKEN AND WOUND WAS PACKED WITH IODIFORM. HIS VITALS TODAY ARE 97.5-76-18-99%-108/74. ABNORMAL LAB VALUES INCLUDE THE FOLLOWING: WBC 12.2, RBC 4.60, HCT 39.4, BUN 19, GLUCOSE 122 , ALBUMIN 2.8, GLOBULIN 5.0. BLOOD CULTURES ARE PENDING. WOUND CULTURES REPORT GROWTH OF GRAM POSITIVE COCCI. HE HAS REMAINED IN NORMAL SINUS RHYTHM SINCE YESTERDAY. HE CONTINUES TO RECEIVE ZOSYN AND VANCOMYCIN. WE WILL CONTINUE WITH CURRENT PLAN OF CARE TODAY. OTHERWISE, WE WILL FOLLOW UP WITH AM LABS AND CONTINUE TO MONITOR PATIENT. - Past Medical Family Social History Past Med/Fam/Surg Hx: No changes since H&P Allergies: Allergies No Known Drug Allergies Allergy (Verified 12/11/16 20:03) - Review of Systems ROS: No change since H&P - Vital Signs and I&O's Vital Signs: Temperature 97.5 F Pulse Rate [Left Brachial] 76 Pulse Rate [Left] 89 Pulse Rate 135 Respiratory Rate 18 Blood Pressure [Left Arm] 108/74 Blood Pressure [Right Arm] 117/67 Blood Pressure 141/80 O2 Sat by Pulse Oximetry 99 Intake and Output: Intake & Output 06/21/17 06/22/17 06/23/17 06/24/17 11:59 11:59 11:59 11:59 Intake Total 180 3996 Balance 180 3996 - Physical Exam Oriented: Normal Eyes: Normal Ear: Normal Nose: Normal Throat: Normal Respiratory: Diminished Cardiovascular: Tachycardia : Normal Auscultation: Bowel Sounds: Normal Palpation: Normal Tenderness: Normal Skin: Red, Tender, Hot, Wound Musculoskeletal: Normal Psychiatric: Normal Mood Description: Calm Affect: Normal Speech Pattern: Clear - Laboratory and Diagnostics Result Diagrams: 06/23/17 04:51 06/23/17 04:51 Labs: 06/21/17 21:32 Blood Blood Culture - Preliminary 06/21/17 21:28 Blood Blood Culture - Preliminary 06/22/17 11:32 Groin Gram Stain - Final 06/22/17 11:32 Groin Wound Culture - Preliminary Laboratory WBC 12.2 X10^3/uL (3.6-10.0) H 06/23/17 04:51 RBC 4.60 X10^6/uL (4.7-6.0) L 06/23/17 04:51 Hgb 13.8 g/dL (13.5-18.0) 06/23/17 04:51 Hct 39.4 % (42.0-54.0) L 06/23/17 04:51 MCV 85.5 fL (80.0-100.0) 06/23/17 04:51 MCH 30.0 pg (27.0-34.0) 06/23/17 04:51 MCHC 35.1 g/dL (33.0-35.0) H 06/23/17 04:51 RDW 13.3 % (11.6-16.5) 06/23/17 04:51 Plt Count 249 X10^3/uL (150.0-450.0) 06/23/17 04:51 MPV 7.9 fL (7.4-11.0) 06/23/17 04:51 Neut % (Auto) 64.6 % (42.0-75.0) 06/23/17 04:51 Lymph % (Auto) 22.6 % (21.0-51.0) 06/23/17 04:51 [place] % (Auto) 9.0 % (0.0-13.0) 06/23/17 04:51 Eos % (Auto) 3.1 % (0.9-2.9) H 06/23/17 04:51 Baso % (Auto) 0.7 % (0.2-1.0) 06/23/17 04:51 Neut # (Auto) 7.9 x10^3/uL (2.2-4.8) H 06/23/17 04:51 Lymph # (Auto) 2.8 X10^3/uL (1.3-2.9) 06/23/17 04:51 [place] # (Auto) 1.1 x10^3/uL (0.3-0.8) H 06/23/17 04:51 Eos # (Auto) 0.4 x10^3/uL (0.0-0.2) H 06/23/17 04:51 Baso # (Auto) 0.1 X10^3/uL (0.0-0.1) 06/23/17 04:51 Absolute Nucleated RBC 0.0 /100WBC 06/23/17 04:51 INR Target Range - 06/21/17 21:28 INR 1.21 (0.8-1.3) 06/21/17 21:28 APTT 36.5 SECONDS (22.9-36.5) 06/21/17 21:28 PTT Comment - 06/21/17 21:28 Sodium 137 mmol/L (136-145) 06/23/17 04:51 Corrected Sodium 138 mmol/L (136-145) 06/23/17 04:51 Potassium 3.9 mmol/L (3.5-5.1) 06/23/17 04:51 Chloride 100 mmol/L (98-107) 06/23/17 04:51 Carbon Dioxide 27.9 mmol/L (21-32) 06/23/17 04:51 BUN 19 mg/dL (7-18) H 06/23/17 04:51 Creatinine 1.25 mg/dL (0.70-1.30) 06/23/17 04:51 Est GFR (MDRD) Af Amer > 60 (>60) 06/23/17 04:51 Est GFR (MDRD) Non-Af > 60 (>60) 06/23/17 04:51 Glucose 122 mg/dL (65-99) H 06/23/17 04:51 POC Glucose (mg/dL) 118 mg/dL (65-99) H 06/23/17 05:34 Hemoglobin A1c 5.8 % 06/22/17 04:36 Lactic Acid 1.7 mmol/L (0.4-2.0) 06/21/17 21:28 Calcium 8.5 mg/dL (8.5-10.1) 06/23/17 04:51 Corrected Calcium 9.5 mg/dL (8.5-10.1) 06/23/17 04:51 Magnesium 1.9 mg/dL (1.7-2.9) 06/21/17 21:28 Total Bilirubin 1.00 mg/dL (0.2-1.0) 06/23/17 04:51 AST 19 Units/L (15-37) 06/23/17 04:51 ALT 28 Units/L (12-78) 06/23/17 04:51 Alkaline Phosphatase 55 Units/L (46-116) 06/23/17 04:51 Creatine Kinase 156 Units/L (39-308) 06/21/17 21:28 CK-MB (CK-2) < 1.0 ng/mL (0-4.0) 06/21/17 21:28 CK/CKMB % Calc 0.6 % (<4) 06/21/17 21:28 Troponin I < 0.02 ng/mL (0-1.5) 06/21/17 21:28 Total Protein 7.8 g/dL (6.4-8.2) 06/23/17 04:51 Albumin 2.8 g/dL (3.4-5.0) L 06/23/17 04:51 Globulin 5.0 g/dL (2.5-4.5) H 06/23/17 04:51 Albumin/Globulin Ratio 0.6 Ratio (1.1-2.1) L 06/23/17 04:51 Free T4 1.28 ng/dL (0.76-1.46) 06/21/17 21:28 TSH 3rd Generation 1.877 uIU/mL (0.358-3.74) 06/21/17 21:28 Specimen Type Random urine 06/22/17 05:54 Urine Color [place] (YELLOW) 06/22/17 05:54 Urine Appearance Clear (CLEAR) 06/22/17 05:54 Urine pH 5.0 (5.0 - 8.0) 06/22/17 05:54 Ur Specific [place] 1.025 (1.000-1.030) 06/22/17 05:54 Urine Protein 1+ (NEGATIVE) 06/22/17 05:54 Urine Glucose (UA) Negative (NEGATIVE) 06/22/17 05:54 Urine Ketones 1+ (NEGATIVE) 06/22/17 05:54 Urine Occult Blood Negative (NEGATIVE) 06/22/17 05:54 Urine Nitrite Negative (NEGATIVE) 06/22/17 05:54 Urine Bilirubin Negative (NEGATIVE) 06/22/17 05:54 Urine Urobilinogen 1+ (NORMAL) 06/22/17 05:54 Ur Leukocyte Esterase Negative (NEGATIVE) 06/22/17 05:54 Urine RBC 0-2 /HPF (NONE SEEN) 06/22/17 05:54 Urine WBC 0-2 /HPF (NONE SEEN) 06/22/17 05:54 Ur Squamous Epith Cells Rare /HPF (NEGATIVE) 06/22/17 05:54 Urine Bacteria Negative /HPF (NEGATIVE) 06/22/17 05:54 Ur Culture Indicated? No/not indicated 06/22/17 05:54 - Plan (1) Atrial fibrillation Status: Acute Qualifiers: Atrial fibrillation type: unspecified Qualified Code(s): I48.91 - Unspecified atrial fibrillation Plan: telemetry, continue to monitor (2) Abscess of right thigh Status: Acute Plan: consult , kelsie, vancomycin, wound cultures, continue to monitor
[2017-06-23 16:07] LABS: CREATININE 1.17 mg/dL (0.70-1.30); VANCOMYCIN,TROUGH 6.6 ug/mL (15-20)
[2017-06-23] MEDS: MOTRIN TAB 600 MG PO PRN (20:49)
[2017-06-23] MEDS: ZOCOR TAB 20 MG PO SCH (20:50)
[2017-06-24] MEDS: NS 1/2 1000 ML IV 1,000 ML IV SCH ×4 (01:52→21:51)
[2017-06-24] MEDS: VANCOMYCIN HCL 1 GM VIAL 1 GM in D5W 250 ML IV 250 ML IV SCH ×2 (03:39→18:09)
[2017-06-24] MEDS ORDERED: NS 1/2 1000 ML IV 1,000 ML IV ONE ×3 (03:41→21:43)
[2017-06-24] MEDS: ZOSYN VIAL 3.375 GM 3.375 GM in NS 100 ML IV + SPIKE MINIBAG* 100 ML IV SCH ×3 (05:41→21:51)
[2017-06-24 06:34] LABS: BASOPHILS # (AUTO) 0.1 X10^3/uL (0.0-0.1); BASOPHILS % (AUTO) 1.1 % (0.2-1.0); EOSINOPHILS # (AUTO) 0.3 x10^3/uL (0.0-0.2); EOSINOPHILS % (AUTO) 3.9 % (0.9-2.9); HEMATOCRIT 36.5 % (42.0-54.0); HEMOGLOBIN 12.8 g/dL (13.5-18.0); LYMPHOCYTES # (AUTO) 1.9 X10^3/uL (1.3-2.9); LYMPHOCYTES % (AUTO) 23.2 % (21.0-51.0); MEAN CORPUSCULAR HGB CONC 35.1 g/dL (33.0-35.0); MEAN CORPUSCULAR VOLUME 85.3 fL (80.0-100.0); MEAN PLATELET VOLUME 7.9 fL (7.4-11.0); MONOCYTES # (AUTO) 0.6 x10^3/uL (0.3-0.8); MONOCYTES % (AUTO) 7.8 % (0.0-13.0); NEUTROPHILS # (AUTO) 5.1 x10^3/uL (2.2-4.8); PLATELET COUNT 222 X10^3/uL (150.0-450.0); RED BLOOD COUNT 4.28 X10^6/uL (4.7-6.0); RED CELL DISTRIBUTION WIDTH 13.2 % (11.6-16.5)
[2017-06-24 07:06] LABS: ALANINE AMINOTRANSFERASE 29 Units/L (12-78); ALBUMIN 2.6 g/dL (3.4-5.0); ALKALINE PHOSPHATASE 49 Units/L (46-116); ASPARTATE AMINO TRANSFERASE 23 Units/L (15-37); BLOOD UREA NITROGEN 16 mg/dL (7-18); CALCIUM 7.8 mg/dL (8.5-10.1); CARBON DIOXIDE 24.6 mmol/L (21-32); CHLORIDE 104 mmol/L (98-107); COR CA(FOR HYPOALB) 8.9 mg/dL (8.5-10.1); COR NA(FOR HYPERGLY) 140 mmol/L (136-145); CREATININE 1.14 mg/dL (0.70-1.30); SODIUM 139 mmol/L (136-145); eGFR BLACK RACES > 60 (>60); eGFR NON BLACK RACES > 60 (>60)
[2017-06-24] MEDS: LOVENOX INJ 60 MG SYR SC SCH ×2 (09:20→21:54)
--- NOTE | 2017-06-24 14:42 | DR.PROGNOT ---
Hospital Progress Notes - Progress Note for Day of: Progress Note Date: 06/24/17 - Chief Complaint Chief Complaint: PO I & D Rt groin abscess .. still having large amount of drainage from the Rt groin abscess with associated cellulitis . initial culture is Staph . Pt is on IV Vancomycin and Zosyn .. - Past Medical Family Social History Past Med/Fam/Surg Hx: No changes since H&P Allergies: Allergies No Known Drug Allergies Allergy (Verified 12/11/16 20:03) - Review Of Systems ROS: No change since H&P - Vital Signs Vital Signs: Temperature 97.6 F Pulse Rate [Left Brachial] 81 Pulse Rate [Left] 89 Pulse Rate 135 Respiratory Rate 22 Blood Pressure [Left Arm] 144/83 Blood Pressure [Right Arm] 117/67 Blood Pressure 141/80 O2 Sat by Pulse Oximetry 100 - Physical Exam Oriented: Normal Eyes: Normal Ear: Normal Nose: Normal Throat: Normal Respiratory: Diminished Cardiovascular: Tachycardia : Normal GI:Auscultation: Normal GI:Palpation: Normal GI: Tenderness: Normal, Other (Rt groin with edema , erythema extending to the lateral aspect of the upper thigh .moderate amount of drainage still present ) Skin: Wound (Rt groin is still erytrhematous with edema and drainage with assiciated cellulitis extending to the upper thigh ) Musculoskeletal: Normal Psychiatric: Normal Mood Description: Calm Affect: Normal Speech Pattern: Clear, Appropriate - Laboratory and Diagnostics Result Diagrams: 06/24/17 06:06 06/24/17 06:06 Labs: 06/22/17 11:32 Groin Gram Stain - Final 06/22/17 11:32 Groin Wound Culture - Preliminary 06/21/17 21:32 Blood Blood Culture - Preliminary 06/21/17 21:28 Blood Blood Culture - Preliminary Laboratory WBC 8.0 X10^3/uL (3.6-10.0) 06/24/17 06:06 RBC 4.28 X10^6/uL (4.7-6.0) L 06/24/17 06:06 Hgb 12.8 g/dL (13.5-18.0) L 06/24/17 06:06 Hct 36.5 % (42.0-54.0) L 06/24/17 06:06 MCV 85.3 fL (80.0-100.0) 06/24/17 06:06 MCH 30.0 pg (27.0-34.0) 06/24/17 06:06 MCHC 35.1 g/dL (33.0-35.0) H 06/24/17 06:06 RDW 13.2 % (11.6-16.5) 06/24/17 06:06 Plt Count 222 X10^3/uL (150.0-450.0) 06/24/17 06:06 MPV 7.9 fL (7.4-11.0) 06/24/17 06:06 Neut % (Auto) 64.0 % (42.0-75.0) 06/24/17 06:06 Lymph % (Auto) 23.2 % (21.0-51.0) 06/24/17 06:06 [place] % (Auto) 7.8 % (0.0-13.0) 06/24/17 06:06 Eos % (Auto) 3.9 % (0.9-2.9) H 06/24/17 06:06 Baso % (Auto) 1.1 % (0.2-1.0) H 06/24/17 06:06 Neut # (Auto) 5.1 x10^3/uL (2.2-4.8) H 06/24/17 06:06 Lymph # (Auto) 1.9 X10^3/uL (1.3-2.9) 06/24/17 06:06 [place] # (Auto) 0.6 x10^3/uL (0.3-0.8) 06/24/17 06:06 Eos # (Auto) 0.3 x10^3/uL (0.0-0.2) H 06/24/17 06:06 Baso # (Auto) 0.1 X10^3/uL (0.0-0.1) 06/24/17 06:06 Absolute Nucleated RBC 0.0 /100WBC 06/24/17 06:06 INR Target Range - 06/21/17 21:28 INR 1.21 (0.8-1.3) 06/21/17 21:28 APTT 36.5 SECONDS (22.9-36.5) 06/21/17 21:28 PTT Comment - 06/21/17 21:28 Sodium 139 mmol/L (136-145) 06/24/17 06:06 Corrected Sodium 140 mmol/L (136-145) 06/24/17 06:06 Potassium 3.2 mmol/L (3.5-5.1) L 06/24/17 06:06 Chloride 104 mmol/L (98-107) 06/24/17 06:06 Carbon Dioxide 24.6 mmol/L (21-32) 06/24/17 06:06 BUN 16 mg/dL (7-18) 06/24/17 06:06 Creatinine 1.14 mg/dL (0.70-1.30) 06/24/17 06:06 Est GFR (MDRD) Af Amer > 60 (>60) 06/24/17 06:06 Est GFR (MDRD) Non-Af > 60 (>60) 06/24/17 06:06 Glucose 134 mg/dL (65-99) H 06/24/17 06:06 POC Glucose (mg/dL) 118 mg/dL (65-99) H 06/23/17 05:34 Hemoglobin A1c 5.8 % 06/22/17 04:36 Lactic Acid 1.7 mmol/L (0.4-2.0) 06/21/17 21:28 Calcium 7.8 mg/dL (8.5-10.1) L 06/24/17 06:06 Corrected Calcium 8.9 mg/dL (8.5-10.1) 06/24/17 06:06 Magnesium 1.9 mg/dL (1.7-2.9) 06/21/17 21:28 Total Bilirubin 0.50 mg/dL (0.2-1.0) 06/24/17 06:06 AST 23 Units/L (15-37) 06/24/17 06:06 ALT 29 Units/L (12-78) 06/24/17 06:06 Alkaline Phosphatase 49 Units/L (46-116) 06/24/17 06:06 Creatine Kinase 156 Units/L (39-308) 06/21/17 21:28 CK-MB (CK-2) < 1.0 ng/mL (0-4.0) 06/21/17 21:28 CK/CKMB % Calc 0.6 % (<4) 06/21/17 21:28 Troponin I < 0.02 ng/mL (0-1.5) 06/21/17 21:28 Total Protein 7.0 g/dL (6.4-8.2) 06/24/17 06:06 Albumin 2.6 g/dL (3.4-5.0) L 06/24/17 06:06 Globulin 4.4 g/dL (2.5-4.5) 06/24/17 06:06 Albumin/Globulin Ratio 0.6 Ratio (1.1-2.1) L 06/24/17 06:06 Free T4 1.28 ng/dL (0.76-1.46) 06/21/17 21:28 TSH 3rd Generation 1.877 uIU/mL (0.358-3.74) 06/21/17 21:28 Specimen Type Random urine 06/22/17 05:54 Urine Color [place] (YELLOW) 06/22/17 05:54 Urine Appearance Clear (CLEAR) 06/22/17 05:54 Urine pH 5.0 (5.0 - 8.0) 06/22/17 05:54 Ur Specific [place] 1.025 (1.000-1.030) 06/22/17 05:54 Urine Protein 1+ (NEGATIVE) 06/22/17 05:54 Urine Glucose (UA) Negative (NEGATIVE) 06/22/17 05:54 Urine Ketones 1+ (NEGATIVE) 06/22/17 05:54 Urine Occult Blood Negative (NEGATIVE) 06/22/17 05:54 Urine Nitrite Negative (NEGATIVE) 06/22/17 05:54 Urine Bilirubin Negative (NEGATIVE) 06/22/17 05:54 Urine Urobilinogen 1+ (NORMAL) 06/22/17 05:54 Ur Leukocyte Esterase Negative (NEGATIVE) 06/22/17 05:54 Urine RBC 0-2 /HPF (NONE SEEN) 06/22/17 05:54 Urine WBC 0-2 /HPF (NONE SEEN) 06/22/17 05:54 Ur Squamous Epith Cells Rare /HPF (NEGATIVE) 06/22/17 05:54 Urine Bacteria Negative /HPF (NEGATIVE) 06/22/17 05:54 Ur Culture Indicated? No/not indicated 06/22/17 05:54 Vancomycin Trough 6.6 ug/mL (15-20) L 06/23/17 15:45 - Assessment and Plan 1: large abscess Rt groin with cellulitis .. S/P I & D. same local care and IV ATB - Problem Patient Problems: Patient Problems Abscess of right thigh (Acute) L02.415 Atrial fibrillation (Acute) I48.91 Cellulitis of right thigh (Acute) L03.115 Hyperglycemia (Acute) R73.9
--- NOTE | 2017-06-24 21:34 | PCM.PROG ---
Progress Note - Progress Note for Day of Date: 06/24/17 - Subjective Subjective: IS BEING TREATED FOR CELLULITIS TO THE RIGHT GROIN. TODAY, HE IS ALERT AND ORIENTED, LYING IN BED ON MORNING ROUNDS. HE CONTINUES WITH PAIN TO THE RIGHT GROIN, SLIGHTLY IMPROVED SINCE YESTERDAY. HE DENIES OTHER COMPLAINTS. PERFORMED I&D TO ABSCESS IN RIGHT GROIN TWO DAYS AGO. WOULD CULTURE WAS TAKEN IS PENDING RESULTS. HIS VITALS TODAY ARE 97.7-82-22-96%- 155/93. ABNORMAL LAB VALUES INCLUDE THE FOLLOWING: HE IS HEMODYNAMICALLY STABLE TODAY. PRELIMINARY WOUND CULTURES REPORT GROWTH OF GRAM POSITIVE COCCI. BLOOD CULTURES ARE PENDING. WILL PERFORM DRESSING CHANGE AND CHANGE PACKING TODAY. HE CONTINUES TO RECEIVE ZOSYN AND VANCOMYCIN. WE WILL CONTINUE WITH CURRENT PLAN OF CARE TODAY. OTHERWISE, WE WILL FOLLOW UP WITH AM LABS AND CONTINUE TO MONITOR PATIENT. - Past Medical Family Social History Past Med/Fam/Surg Hx: No changes since H&P Allergies: Allergies No Known Drug Allergies Allergy (Verified 12/11/16 20:03) - Review of Systems ROS: No change since H&P - Vital Signs and I&O's Vital Signs: Temperature 97.8 F Pulse Rate [Left Brachial] 82 Pulse Rate [Left] 89 Pulse Rate 135 Respiratory Rate 20 Blood Pressure [Left Arm] 165/75 Blood Pressure [Right Arm] 117/67 Blood Pressure 141/80 O2 Sat by Pulse Oximetry 98 Intake and Output: Intake & Output 06/22/17 06/23/17 06/24/17 06/25/17 11:59 11:59 11:59 11:59 Intake Total 180 3996 2759 840 Balance 180 3996 2759 840 - Physical Exam Oriented: Normal Eyes: Normal Ear: Normal Nose: Normal Throat: Normal Respiratory: Diminished Cardiovascular: Tachycardia : Normal Auscultation: Bowel Sounds: Normal Palpation: Normal Tenderness: Normal, Other (Rt groin with edema , erythema extending to the lateral aspect of the upper thigh .moderate amount of drainage still present ) Skin: Wound (Rt groin is still erytrhematous with edema and drainage with assiciated cellulitis extending to the upper thigh ) Musculoskeletal: Normal Psychiatric: Normal Mood Description: Calm Affect: Normal Speech Pattern: Clear, Appropriate - Laboratory and Diagnostics Result Diagrams: 06/24/17 06:06 06/24/17 06:06 Labs: 06/22/17 11:32 Groin Gram Stain - Final 06/22/17 11:32 Groin Wound Culture - Preliminary 06/21/17 21:32 Blood Blood Culture - Preliminary 06/21/17 21:28 Blood Blood Culture - Preliminary Laboratory WBC 8.0 X10^3/uL (3.6-10.0) 06/24/17 06:06 RBC 4.28 X10^6/uL (4.7-6.0) L 06/24/17 06:06 Hgb 12.8 g/dL (13.5-18.0) L 06/24/17 06:06 Hct 36.5 % (42.0-54.0) L 06/24/17 06:06 MCV 85.3 fL (80.0-100.0) 06/24/17 06:06 MCH 30.0 pg (27.0-34.0) 06/24/17 06:06 MCHC 35.1 g/dL (33.0-35.0) H 06/24/17 06:06 RDW 13.2 % (11.6-16.5) 06/24/17 06:06 Plt Count 222 X10^3/uL (150.0-450.0) 06/24/17 06:06 MPV 7.9 fL (7.4-11.0) 06/24/17 06:06 Neut % (Auto) 64.0 % (42.0-75.0) 06/24/17 06:06 Lymph % (Auto) 23.2 % (21.0-51.0) 06/24/17 06:06 [place] % (Auto) 7.8 % (0.0-13.0) 06/24/17 06:06 Eos % (Auto) 3.9 % (0.9-2.9) H 06/24/17 06:06 Baso % (Auto) 1.1 % (0.2-1.0) H 06/24/17 06:06 Neut # (Auto) 5.1 x10^3/uL (2.2-4.8) H 06/24/17 06:06 Lymph # (Auto) 1.9 X10^3/uL (1.3-2.9) 06/24/17 06:06 [place] # (Auto) 0.6 x10^3/uL (0.3-0.8) 06/24/17 06:06 Eos # (Auto) 0.3 x10^3/uL (0.0-0.2) H 06/24/17 06:06 Baso # (Auto) 0.1 X10^3/uL (0.0-0.1) 06/24/17 06:06 Absolute Nucleated RBC 0.0 /100WBC 06/24/17 06:06 INR Target Range - 06/21/17 21:28 INR 1.21 (0.8-1.3) 06/21/17 21:28 APTT 36.5 SECONDS (22.9-36.5) 06/21/17 21:28 PTT Comment - 06/21/17 21:28 Sodium 139 mmol/L (136-145) 06/24/17 06:06 Corrected Sodium 140 mmol/L (136-145) 06/24/17 06:06 Potassium 3.2 mmol/L (3.5-5.1) L 06/24/17 06:06 Chloride 104 mmol/L (98-107) 06/24/17 06:06 Carbon Dioxide 24.6 mmol/L (21-32) 06/24/17 06:06 BUN 16 mg/dL (7-18) 06/24/17 06:06 Creatinine 1.14 mg/dL (0.70-1.30) 06/24/17 06:06 Est GFR (MDRD) Af Amer > 60 (>60) 06/24/17 06:06 Est GFR (MDRD) Non-Af > 60 (>60) 06/24/17 06:06 Glucose 134 mg/dL (65-99) H 06/24/17 06:06 POC Glucose (mg/dL) 118 mg/dL (65-99) H 06/23/17 05:34 Hemoglobin A1c 5.8 % 06/22/17 04:36 Lactic Acid 1.7 mmol/L (0.4-2.0) 06/21/17 21:28 Calcium 7.8 mg/dL (8.5-10.1) L 06/24/17 06:06 Corrected Calcium 8.9 mg/dL (8.5-10.1) 06/24/17 06:06 Magnesium 1.9 mg/dL (1.7-2.9) 06/21/17 21:28 Total Bilirubin 0.50 mg/dL (0.2-1.0) 06/24/17 06:06 AST 23 Units/L (15-37) 06/24/17 06:06 ALT 29 Units/L (12-78) 06/24/17 06:06 Alkaline Phosphatase 49 Units/L (46-116) 06/24/17 06:06 Creatine Kinase 156 Units/L (39-308) 06/21/17 21:28 CK-MB (CK-2) < 1.0 ng/mL (0-4.0) 06/21/17 21:28 CK/CKMB % Calc 0.6 % (<4) 06/21/17 21:28 Troponin I < 0.02 ng/mL (0-1.5) 06/21/17 21:28 Total Protein 7.0 g/dL (6.4-8.2) 06/24/17 06:06 Albumin 2.6 g/dL (3.4-5.0) L 06/24/17 06:06 Globulin 4.4 g/dL (2.5-4.5) 06/24/17 06:06 Albumin/Globulin Ratio 0.6 Ratio (1.1-2.1) L 06/24/17 06:06 Free T4 1.28 ng/dL (0.76-1.46) 06/21/17 21:28 TSH 3rd Generation 1.877 uIU/mL (0.358-3.74) 06/21/17 21:28 Specimen Type Random urine 06/22/17 05:54 Urine Color [place] (YELLOW) 06/22/17 05:54 Urine Appearance Clear (CLEAR) 06/22/17 05:54 Urine pH 5.0 (5.0 - 8.0) 06/22/17 05:54 Ur Specific [place] 1.025 (1.000-1.030) 06/22/17 05:54 Urine Protein 1+ (NEGATIVE) 06/22/17 05:54 Urine Glucose (UA) Negative (NEGATIVE) 06/22/17 05:54 Urine Ketones 1+ (NEGATIVE) 06/22/17 05:54 Urine Occult Blood Negative (NEGATIVE) 06/22/17 05:54 Urine Nitrite Negative (NEGATIVE) 06/22/17 05:54 Urine Bilirubin Negative (NEGATIVE) 06/22/17 05:54 Urine Urobilinogen 1+ (NORMAL) 06/22/17 05:54 Ur Leukocyte Esterase Negative (NEGATIVE) 06/22/17 05:54 Urine RBC 0-2 /HPF (NONE SEEN) 06/22/17 05:54 Urine WBC 0-2 /HPF (NONE SEEN) 06/22/17 05:54 Ur Squamous Epith Cells Rare /HPF (NEGATIVE) 06/22/17 05:54 Urine Bacteria Negative /HPF (NEGATIVE) 06/22/17 05:54 Ur Culture Indicated? No/not indicated 06/22/17 05:54 Vancomycin Trough 6.6 ug/mL (15-20) L 06/23/17 15:45 - Plan (1) Atrial fibrillation Status: Acute Qualifiers: Atrial fibrillation type: unspecified Qualified Code(s): I48.91 - Unspecified atrial fibrillation Plan: telemetry, continue to monitor (2) Abscess of right thigh Status: Acute Plan: wound care, iv zosyn, vancomycin, wound cultures, continue to monitor
[2017-06-24] MEDS: ZOCOR TAB 20 MG PO SCH (21:53)
[2017-06-25] MEDS: VANCOMYCIN HCL 1 GM VIAL 1 GM in D5W 250 ML IV 250 ML IV SCH ×2 (03:46→22:16)
[2017-06-25] MEDS: ZOSYN VIAL 3.375 GM 3.375 GM in NS 100 ML IV + SPIKE MINIBAG* 100 ML IV SCH ×3 (05:41→22:17)
[2017-06-25 06:06] LABS: BASOPHILS # (AUTO) 0.1 X10^3/uL (0.0-0.1); BASOPHILS % (AUTO) 1.1 % (0.2-1.0); EOSINOPHILS # (AUTO) 0.3 x10^3/uL (0.0-0.2); EOSINOPHILS % (AUTO) 3.9 % (0.9-2.9); HEMATOCRIT 36.5 % (42.0-54.0); HEMOGLOBIN 12.9 g/dL (13.5-18.0); LYMPHOCYTES # (AUTO) 1.7 X10^3/uL (1.3-2.9); LYMPHOCYTES % (AUTO) 22.9 % (21.0-51.0); MEAN CORPUSCULAR HEMOGLOBIN 29.8 pg (27.0-34.0); MEAN CORPUSCULAR HGB CONC 35.4 g/dL (33.0-35.0); MEAN CORPUSCULAR VOLUME 84.2 fL (80.0-100.0); MEAN PLATELET VOLUME 7.7 fL (7.4-11.0); MONOCYTES # (AUTO) 0.5 x10^3/uL (0.3-0.8); MONOCYTES % (AUTO) 7.3 % (0.0-13.0); NEUTROPHILS # (AUTO) 4.9 x10^3/uL (2.2-4.8); NEUTROPHILS % (AUTO) 64.8 % (42.0-75.0); PLATELET COUNT 237 X10^3/uL (150.0-450.0); RED BLOOD COUNT 4.33 X10^6/uL (4.7-6.0); RED CELL DISTRIBUTION WIDTH 13.2 % (11.6-16.5); WHITE BLOOD COUNT 7.5 X10^3/uL (3.6-10.0)
[2017-06-25 06:34] LABS: ALANINE AMINOTRANSFERASE 32 Units/L (12-78); ALBUMIN 2.6 g/dL (3.4-5.0); ALKALINE PHOSPHATASE 47 Units/L (46-116); ASPARTATE AMINO TRANSFERASE 26 Units/L (15-37); BLOOD UREA NITROGEN 13 mg/dL (7-18); CALCIUM 7.9 mg/dL (8.5-10.1); CARBON DIOXIDE 25.2 mmol/L (21-32); CHLORIDE 106 mmol/L (98-107); COR NA(FOR HYPERGLY) 140 mmol/L (136-145); CREATININE 1.14 mg/dL (0.70-1.30); SODIUM 140 mmol/L (136-145); eGFR BLACK RACES > 60 (>60); eGFR NON BLACK RACES > 60 (>60)
[2017-06-25] MEDS: NS 1/2 1000 ML IV 1,000 ML IV SCH ×3 (06:43→14:51)
[2017-06-25] MEDS ORDERED: NS 1/2 1000 ML IV 1,000 ML IV ONE ×3 (06:45→22:31)
[2017-06-25] MEDS: LOVENOX INJ 60 MG SYR SC SCH ×2 (09:11→22:08)
--- NOTE | 2017-06-25 12:34 | PCM.PROG ---
Progress Note - Progress Note for Day of Date: 06/25/17 - Subjective Subjective: IS BEING TREATED FOR CELLULITIS TO THE RIGHT GROIN. TODAY, HE IS ALERT AND ORIENTED, LYING IN BED ON MORNING ROUNDS. HE CONTINUES WITH PAIN AND DRAINAGE TO THE RIGHT GROIN AFTER I&D OF THE ABSCESS TWO DAYS AGO. RIGHT GROIN CONTINUES WITH ERYTHEMA AND EDEMA. HE DENIES OTHER COMPLAINTS. WOULD CULTURE REPORTS GROWTH OF STREP PYROGENES GROUP A. IT IS SENSITIVE TO THE VANCYMYCIN AND ZOSYN THAT HE IS CURRENTLY RECEIVING. HIS VITALS TODAY ARE 98.1- 73-20-99%-125/78. ABNORMAL LAB VALUES INCLUDE THE FOLLOWING: RBC 4.33, HGB 12.9 , HCT 36.5, GLUCOSE 113, CALCIM 7.9, ALBUMIN 2.6. WILL PERFORM DRESSING CHANGE AND CHANGE PACKING TODAY. WE WILL CONTINUE WITH CURRENT PLAN OF CARE TODAY. OTHERWISE, WE WILL FOLLOW UP WITH AM LABS AND CONTINUE TO MONITOR PATIENT. - Past Medical Family Social History Past Med/Fam/Surg Hx: No changes since H&P Allergies: Allergies No Known Drug Allergies Allergy (Verified 12/11/16 20:03) - Review of Systems ROS: No change since H&P - Vital Signs and I&O's Vital Signs: Temperature 98.1 F Pulse Rate [Left Brachial] 79 Pulse Rate [Left] 73 Pulse Rate 135 Respiratory Rate 20 Blood Pressure [Left Arm] 125/78 Blood Pressure [Right Arm] 117/67 Blood Pressure 141/80 O2 Sat by Pulse Oximetry 99 Intake and Output: Intake & Output 06/23/17 06/24/17 06/25/17 06/26/17 11:59 11:59 11:59 11:59 Intake Total 3996 2759 1210 Balance 3996 2759 1210 - Physical Exam Oriented: Normal Eyes: Normal Ear: Normal Nose: Normal Throat: Normal Respiratory: Diminished Cardiovascular: Tachycardia : Normal Auscultation: Bowel Sounds: Normal Palpation: Normal Tenderness: Normal, Other (Rt groin with edema , erythema extending to the lateral aspect of the upper thigh .moderate amount of drainage still present ) Skin: Wound (Rt groin is still erytrhematous with edema and drainage with assiciated cellulitis extending to the upper thigh ) Musculoskeletal: Normal Psychiatric: Normal Mood Description: Calm Affect: Normal Speech Pattern: Clear, Appropriate - Laboratory and Diagnostics Result Diagrams: 06/25/17 05:28 06/25/17 05:28 Labs: 06/22/17 11:32 Groin Gram Stain - Final 06/22/17 11:32 Groin Wound Culture - Final Strep Pyogenes (Grp A) 06/21/17 21:32 Blood Blood Culture - Preliminary 06/21/17 21:28 Blood Blood Culture - Preliminary Laboratory WBC 7.5 X10^3/uL (3.6-10.0) 06/25/17 05:28 RBC 4.33 X10^6/uL (4.7-6.0) L 06/25/17 05:28 Hgb 12.9 g/dL (13.5-18.0) L 06/25/17 05:28 Hct 36.5 % (42.0-54.0) L 06/25/17 05:28 MCV 84.2 fL (80.0-100.0) 06/25/17 05:28 MCH 29.8 pg (27.0-34.0) 06/25/17 05:28 MCHC 35.4 g/dL (33.0-35.0) H 06/25/17 05:28 RDW 13.2 % (11.6-16.5) 06/25/17 05:28 Plt Count 237 X10^3/uL (150.0-450.0) 06/25/17 05:28 MPV 7.7 fL (7.4-11.0) 06/25/17 05:28 Neut % (Auto) 64.8 % (42.0-75.0) 06/25/17 05:28 Lymph % (Auto) 22.9 % (21.0-51.0) 06/25/17 05:28 [place] % (Auto) 7.3 % (0.0-13.0) 06/25/17 05:28 Eos % (Auto) 3.9 % (0.9-2.9) H 06/25/17 05:28 Baso % (Auto) 1.1 % (0.2-1.0) H 06/25/17 05:28 Neut # (Auto) 4.9 x10^3/uL (2.2-4.8) H 06/25/17 05:28 Lymph # (Auto) 1.7 X10^3/uL (1.3-2.9) 06/25/17 05:28 [place] # (Auto) 0.5 x10^3/uL (0.3-0.8) 06/25/17 05:28 Eos # (Auto) 0.3 x10^3/uL (0.0-0.2) H 06/25/17 05:28 Baso # (Auto) 0.1 X10^3/uL (0.0-0.1) 06/25/17 05:28 Absolute Nucleated RBC 0.1 /100WBC 06/25/17 05:28 INR Target Range - 06/21/17 21:28 INR 1.21 (0.8-1.3) 06/21/17 21:28 APTT 36.5 SECONDS (22.9-36.5) 06/21/17 21:28 PTT Comment - 06/21/17 21:28 Sodium 140 mmol/L (136-145) 06/25/17 05:28 Corrected Sodium 140 mmol/L (136-145) 06/25/17 05:28 Potassium 3.6 mmol/L (3.5-5.1) 06/25/17 05:28 Chloride 106 mmol/L (98-107) 06/25/17 05:28 Carbon Dioxide 25.2 mmol/L (21-32) 06/25/17 05:28 BUN 13 mg/dL (7-18) 06/25/17 05:28 Creatinine 1.14 mg/dL (0.70-1.30) 06/25/17 05:28 Est GFR (MDRD) Af Amer > 60 (>60) 06/25/17 05:28 Est GFR (MDRD) Non-Af > 60 (>60) 06/25/17 05:28 Glucose 113 mg/dL (65-99) H 06/25/17 05:28 POC Glucose (mg/dL) 118 mg/dL (65-99) H 06/23/17 05:34 Hemoglobin A1c 5.8 % 06/22/17 04:36 Lactic Acid 1.7 mmol/L (0.4-2.0) 06/21/17 21:28 Calcium 7.9 mg/dL (8.5-10.1) L 06/25/17 05:28 Corrected Calcium 9.0 mg/dL (8.5-10.1) 06/25/17 05:28 Magnesium 1.9 mg/dL (1.7-2.9) 06/21/17 21:28 Total Bilirubin 0.50 mg/dL (0.2-1.0) 06/25/17 05:28 AST 26 Units/L (15-37) 06/25/17 05:28 ALT 32 Units/L (12-78) 06/25/17 05:28 Alkaline Phosphatase 47 Units/L (46-116) 06/25/17 05:28 Creatine Kinase 156 Units/L (39-308) 06/21/17 21:28 CK-MB (CK-2) < 1.0 ng/mL (0-4.0) 06/21/17 21:28 CK/CKMB % Calc 0.6 % (<4) 06/21/17 21:28 Troponin I < 0.02 ng/mL (0-1.5) 06/21/17 21:28 Total Protein 7.0 g/dL (6.4-8.2) 06/25/17 05:28 Albumin 2.6 g/dL (3.4-5.0) L 06/25/17 05:28 Globulin 4.4 g/dL (2.5-4.5) 06/25/17 05:28 Albumin/Globulin Ratio 0.6 Ratio (1.1-2.1) L 06/25/17 05:28 Free T4 1.28 ng/dL (0.76-1.46) 06/21/17 21:28 TSH 3rd Generation 1.877 uIU/mL (0.358-3.74) 06/21/17 21:28 Specimen Type Random urine 06/22/17 05:54 Urine Color [place] (YELLOW) 06/22/17 05:54 Urine Appearance Clear (CLEAR) 06/22/17 05:54 Urine pH 5.0 (5.0 - 8.0) 06/22/17 05:54 Ur Specific [place] 1.025 (1.000-1.030) 06/22/17 05:54 Urine Protein 1+ (NEGATIVE) 06/22/17 05:54 Urine Glucose (UA) Negative (NEGATIVE) 06/22/17 05:54 Urine Ketones 1+ (NEGATIVE) 06/22/17 05:54 Urine Occult Blood Negative (NEGATIVE) 06/22/17 05:54 Urine Nitrite Negative (NEGATIVE) 06/22/17 05:54 Urine Bilirubin Negative (NEGATIVE) 06/22/17 05:54 Urine Urobilinogen 1+ (NORMAL) 06/22/17 05:54 Ur Leukocyte Esterase Negative (NEGATIVE) 06/22/17 05:54 Urine RBC 0-2 /HPF (NONE SEEN) 06/22/17 05:54 Urine WBC 0-2 /HPF (NONE SEEN) 06/22/17 05:54 Ur Squamous Epith Cells Rare /HPF (NEGATIVE) 06/22/17 05:54 Urine Bacteria Negative /HPF (NEGATIVE) 06/22/17 05:54 Ur Culture Indicated? No/not indicated 06/22/17 05:54 Vancomycin Trough 6.6 ug/mL (15-20) L 06/23/17 15:45 - Plan (1) Atrial fibrillation Status: Acute Qualifiers: Atrial fibrillation type: unspecified Qualified Code(s): I48.91 - Unspecified atrial fibrillation Plan: telemetry, continue to monitor (2) Abscess of right thigh Status: Acute Plan: wound care, iv zosyn, vancomycin, wound cultures, continue to monitor
[2017-06-25] MEDS ORDERED: NS 1000 ML 1,000 ML ONE (13:59)
[2017-06-25] MEDS ORDERED: BACITRACIN VIAL ONE (14:00)
[2017-06-25] MEDS ORDERED: FENTANYL INJ 100 mcg ONE ×2 (14:05→14:11)
[2017-06-25] MEDS ORDERED: NS IRRIGATION 1000 ML 1,000 ML with BACITRACIN VIAL 50,000 UNIT IR ONE ×2 (14:14)
[2017-06-25] MEDS ORDERED: MARCAINE 0.5% ONE (14:20)
[2017-06-25] MEDS ORDERED: VERSED ONE (15:51)
[2017-06-25] MEDS ORDERED: DIPRIVAN VIAL ONE (15:51)
[2017-06-25] MEDS: MOTRIN TAB 600 MG PO PRN (18:37)
[2017-06-25 19:27] LABS: CREATININE 1.2 mg/dL (0.70-1.30); VANCOMYCIN,TROUGH 7.6 ug/mL (15-20)
[2017-06-25] MEDS: ZOCOR TAB 20 MG PO SCH (22:08)
[2017-06-26] MEDS: VANCOMYCIN HCL 1 GM VIAL 1 GM in D5W 250 ML IV 250 ML IV SCH ×2 (05:30→07:04)
[2017-06-26 06:26] LABS: BASOPHILS # (AUTO) 0.1 X10^3/uL (0.0-0.1); EOSINOPHILS # (AUTO) 0.3 x10^3/uL (0.0-0.2); HEMATOCRIT 35.6 % (42.0-54.0); HEMOGLOBIN 12.5 g/dL (13.5-18.0); LYMPHOCYTES # (AUTO) 1.7 X10^3/uL (1.3-2.9); LYMPHOCYTES % (AUTO) 23.4 % (21.0-51.0); MEAN CORPUSCULAR HGB CONC 35.2 g/dL (33.0-35.0); MEAN CORPUSCULAR VOLUME 85.1 fL (80.0-100.0); MEAN PLATELET VOLUME 8.1 fL (7.4-11.0); MONOCYTES # (AUTO) 0.5 x10^3/uL (0.3-0.8); MONOCYTES % (AUTO) 7.4 % (0.0-13.0); NEUTROPHILS # (AUTO) 4.8 x10^3/uL (2.2-4.8); NEUTROPHILS % (AUTO) 64.2 % (42.0-75.0); PLATELET COUNT 252 X10^3/uL (150.0-450.0); RED BLOOD COUNT 4.18 X10^6/uL (4.7-6.0); WHITE BLOOD COUNT 7.4 X10^3/uL (3.6-10.0)
[2017-06-26] MEDS: ZOSYN VIAL 3.375 GM 3.375 GM in NS 100 ML IV + SPIKE MINIBAG* 100 ML IV SCH (06:50)
[2017-06-26 06:52] LABS: ALANINE AMINOTRANSFERASE 41 Units/L (12-78); ALBUMIN 2.6 g/dL (3.4-5.0); ALKALINE PHOSPHATASE 45 Units/L (46-116); ASPARTATE AMINO TRANSFERASE 27 Units/L (15-37); BLOOD UREA NITROGEN 11 mg/dL (7-18); CALCIUM 8.1 mg/dL (8.5-10.1); CARBON DIOXIDE 26.8 mmol/L (21-32); CHLORIDE 106 mmol/L (98-107); COR CA(FOR HYPOALB) 9.2 mg/dL (8.5-10.1); CREATININE 1.08 mg/dL (0.70-1.30); SODIUM 141 mmol/L (136-145); TOTAL PROTEIN 6.9 g/dL (6.4-8.2); eGFR BLACK RACES > 60 (>60); eGFR NON BLACK RACES > 60 (>60)
--- NOTE | 2017-06-26 08:45 | DR.PROGNOT ---
Hospital Progress Notes - Progress Note for Day of: Progress Note Date: 06/26/17 - Chief Complaint Chief Complaint: PO further debridement of Rt groin abscess. mild drainage from incision with less cellulitis. final culture is strep GRP D. will need VNA to change dressing and packing daily ,oral ATB and will follow next week. - Past Medical Family Social History Past Med/Fam/Surg Hx: No changes since H&P Allergies: Allergies No Known Drug Allergies Allergy (Verified 12/11/16 20:03) - Review Of Systems ROS: No change since H&P - Vital Signs Vital Signs: Temperature 97.6 F Pulse Rate [Left Brachial] 91 Pulse Rate [Left] 73 Pulse Rate 135 Respiratory Rate 16 Blood Pressure [Left Arm] 117/75 Blood Pressure [Right Arm] 117/67 Blood Pressure 141/80 O2 Sat by Pulse Oximetry 98 - Physical Exam Oriented: Normal Eyes: Normal Ear: Normal Nose: Normal Throat: Normal Respiratory: Diminished Cardiovascular: Tachycardia : Normal GI:Auscultation: Normal GI:Palpation: Normal GI: Tenderness: Normal, Other (Rt groin with edema , erythema extending to the lateral aspect of the upper thigh .moderate amount of drainage still present ) Skin: Wound (packing was changed . less cellulitis and edema.. open 3 x 2 x2 cm groin incision ) Musculoskeletal: Normal Psychiatric: Normal Mood Description: Calm Affect: Normal Speech Pattern: Clear, Appropriate - Laboratory and Diagnostics Result Diagrams: 06/26/17 05:10 06/26/17 05:10 Labs: 06/25/17 14:40 Groin Gram Stain - Final 06/25/17 14:40 Groin Wound Culture - Preliminary 06/22/17 11:32 Groin Gram Stain - Final 06/22/17 11:32 Groin Wound Culture - Final Strep Pyogenes (Grp A) 06/21/17 21:32 Blood Blood Culture - Preliminary 06/21/17 21:28 Blood Blood Culture - Preliminary Laboratory WBC 7.4 X10^3/uL (3.6-10.0) 06/26/17 05:10 RBC 4.18 X10^6/uL (4.7-6.0) L 06/26/17 05:10 Hgb 12.5 g/dL (13.5-18.0) L 06/26/17 05:10 Hct 35.6 % (42.0-54.0) L 06/26/17 05:10 MCV 85.1 fL (80.0-100.0) 06/26/17 05:10 MCH 30.0 pg (27.0-34.0) 06/26/17 05:10 MCHC 35.2 g/dL (33.0-35.0) H 06/26/17 05:10 RDW 13.0 % (11.6-16.5) 06/26/17 05:10 Plt Count 252 X10^3/uL (150.0-450.0) 06/26/17 05:10 MPV 8.1 fL (7.4-11.0) 06/26/17 05:10 Neut % (Auto) 64.2 % (42.0-75.0) 06/26/17 05:10 Lymph % (Auto) 23.4 % (21.0-51.0) 06/26/17 05:10 [place] % (Auto) 7.4 % (0.0-13.0) 06/26/17 05:10 Eos % (Auto) 4.0 % (0.9-2.9) H 06/26/17 05:10 Baso % (Auto) 1.0 % (0.2-1.0) 06/26/17 05:10 Neut # (Auto) 4.8 x10^3/uL (2.2-4.8) 06/26/17 05:10 Lymph # (Auto) 1.7 X10^3/uL (1.3-2.9) 06/26/17 05:10 [place] # (Auto) 0.5 x10^3/uL (0.3-0.8) 06/26/17 05:10 Eos # (Auto) 0.3 x10^3/uL (0.0-0.2) H 06/26/17 05:10 Baso # (Auto) 0.1 X10^3/uL (0.0-0.1) 06/26/17 05:10 Absolute Nucleated RBC 0.0 /100WBC 06/26/17 05:10 INR Target Range - 06/21/17 21:28 INR 1.21 (0.8-1.3) 06/21/17 21:28 APTT 36.5 SECONDS (22.9-36.5) 06/21/17 21:28 PTT Comment - 06/21/17 21:28 Sodium 141 mmol/L (136-145) 06/26/17 05:10 Corrected Sodium TNP 06/26/17 05:10 Potassium 3.8 mmol/L (3.5-5.1) 06/26/17 05:10 Chloride 106 mmol/L (98-107) 06/26/17 05:10 Carbon Dioxide 26.8 mmol/L (21-32) 06/26/17 05:10 BUN 11 mg/dL (7-18) 06/26/17 05:10 Creatinine 1.08 mg/dL (0.70-1.30) 06/26/17 05:10 Est GFR (MDRD) Af Amer > 60 (>60) 06/26/17 05:10 Est GFR (MDRD) Non-Af > 60 (>60) 06/26/17 05:10 Glucose 92 mg/dL (65-99) 06/26/17 05:10 POC Glucose (mg/dL) 118 mg/dL (65-99) H 06/23/17 05:34 Hemoglobin A1c 5.8 % 06/22/17 04:36 Lactic Acid 1.7 mmol/L (0.4-2.0) 06/21/17 21:28 Calcium 8.1 mg/dL (8.5-10.1) L 06/26/17 05:10 Corrected Calcium 9.2 mg/dL (8.5-10.1) 06/26/17 05:10 Magnesium 1.9 mg/dL (1.7-2.9) 06/21/17 21:28 Total Bilirubin 0.50 mg/dL (0.2-1.0) 06/26/17 05:10 AST 27 Units/L (15-37) 06/26/17 05:10 ALT 41 Units/L (12-78) 06/26/17 05:10 Alkaline Phosphatase 45 Units/L (46-116) L 06/26/17 05:10 Creatine Kinase 156 Units/L (39-308) 06/21/17 21:28 CK-MB (CK-2) < 1.0 ng/mL (0-4.0) 06/21/17 21:28 CK/CKMB % Calc 0.6 % (<4) 06/21/17 21:28 Troponin I < 0.02 ng/mL (0-1.5) 06/21/17 21:28 Total Protein 6.9 g/dL (6.4-8.2) 06/26/17 05:10 Albumin 2.6 g/dL (3.4-5.0) L 06/26/17 05:10 Globulin 4.3 g/dL (2.5-4.5) 06/26/17 05:10 Albumin/Globulin Ratio 0.6 Ratio (1.1-2.1) L 06/26/17 05:10 Free T4 1.28 ng/dL (0.76-1.46) 06/21/17 21:28 TSH 3rd Generation 1.877 uIU/mL (0.358-3.74) 06/21/17 21:28 Specimen Type Random urine 06/22/17 05:54 Urine Color [place] (YELLOW) 06/22/17 05:54 Urine Appearance Clear (CLEAR) 06/22/17 05:54 Urine pH 5.0 (5.0 - 8.0) 06/22/17 05:54 Ur Specific [place] 1.025 (1.000-1.030) 06/22/17 05:54 Urine Protein 1+ (NEGATIVE) 06/22/17 05:54 Urine Glucose (UA) Negative (NEGATIVE) 06/22/17 05:54 Urine Ketones 1+ (NEGATIVE) 06/22/17 05:54 Urine Occult Blood Negative (NEGATIVE) 06/22/17 05:54 Urine Nitrite Negative (NEGATIVE) 06/22/17 05:54 Urine Bilirubin Negative (NEGATIVE) 06/22/17 05:54 Urine Urobilinogen 1+ (NORMAL) 06/22/17 05:54 Ur Leukocyte Esterase Negative (NEGATIVE) 06/22/17 05:54 Urine RBC 0-2 /HPF (NONE SEEN) 06/22/17 05:54 Urine WBC 0-2 /HPF (NONE SEEN) 06/22/17 05:54 Ur Squamous Epith Cells Rare /HPF (NEGATIVE) 06/22/17 05:54 Urine Bacteria Negative /HPF (NEGATIVE) 06/22/17 05:54 Ur Culture Indicated? No/not indicated 06/22/17 05:54 Vancomycin Trough 7.6 ug/mL (15-20) L 06/25/17 18:50 Tissue Pathology To follow 06/25/17 14:40 - Assessment and Plan 1: large abscess Rt groin with necrosis , S/P debridement . could go home with VNA to change dressin. will follow next week. on oral Augmentin and Flagyl - Problem Patient Problems: Patient Problems Abscess of right thigh (Acute) L02.415 Atrial fibrillation (Acute) I48.91 Cellulitis of right thigh (Acute) L03.115 Hyperglycemia (Acute) R73.9
[2017-06-26] MEDS: LOVENOX INJ 60 MG SYR SC SCH (09:14)
[2017-06-26 12:45] VITALS: BP 136/94
== END 2017-06-26 12:10 | disposition home health service (06) | DRG 264 ==
LOC: ER 20:44 → MED/SURG 06-22 00:41
PROVIDERS: ADMIT Internal Medicine; ATTEND Internal Medicine
PROC: 0J9C0ZX Drainage of Pelvic Region Subcutaneous Tissue and Fascia, Open Approach, Diagnostic (ICD-10-PCS; principal; 2017-06-22)
PROC: 0JBL0ZZ Excision of Right Upper Leg Subcutaneous Tissue and Fascia, Open Approach (ICD-10-PCS; 2017-06-25)
DX: I48.91 Unspecified atrial fibrillation (principal); L03.115 Cellulitis of right lower limb; L02.415 Cutaneous abscess of right lower limb; B95.0 Streptococcus, group A, as the cause of diseases classified elsewhere; R06.02 Shortness of breath; R94.31 Abnormal electrocardiogram [ECG] [EKG]; I51.7 Cardiomegaly; E78.2 Mixed hyperlipidemia; I10 Essential (primary) hypertension; R73.9 Hyperglycemia, unspecified; Z79.1 Long term (current) use of non-steroidal anti-inflammatories (NSAID)
CPT/HCPCS: 36415; 71045; 80053; 80202; 81001; 82550; 82553; 82565; 83036; 83605; 83735; 84439; 84443; 84484; 85025; 85610; 85730; 87040; 87070; 87075; 87077; 87186; 87205; 88305; 93005; 93010; 94760; 96365; 96367; 96372; 96374; 99100; 99284; A4216; A4222; S0020; J0696; J1650; J2001; J2250; J2270; J2543; J3010; J3370; J3490

== ENCOUNTER 2019-03-05 12:40 | Inpatient (IN) ==
[2019-03-05] MEDS ORDERED: HEPARIN SODIUM INJ 5000 UNITS IVP ONE (19:00)
[2019-03-05 19:12] LABS: BASOPHILS # (AUTO) 0.1 X10^3/uL (0.0-0.1); EOSINOPHILS # (AUTO) 0.1 x10^3/uL (0.0-0.2); EOSINOPHILS % (AUTO) 1.3 % (0.9-2.9); HEMATOCRIT 47.3 % (42.0-54.0); HEMOGLOBIN 16.6 g/dL (13.5-18.0); LYMPHOCYTES # (AUTO) 2.2 X10^3/uL (1.3-2.9); LYMPHOCYTES % (AUTO) 20.6 % (21.0-51.0); MEAN CORPUSCULAR HEMOGLOBIN 30.9 pg (27.0-34.0); MEAN CORPUSCULAR VOLUME 88.3 fL (80.0-100.0); MEAN PLATELET VOLUME 7.5 fL (7.4-11.0); MONOCYTES # (AUTO) 0.8 x10^3/uL (0.3-0.8); MONOCYTES % (AUTO) 7.9 % (0.0-13.0); NEUTROPHILS # (AUTO) 7.4 x10^3/uL (2.2-4.8); NEUTROPHILS % (AUTO) 69.2 % (42.0-75.0); PLATELET COUNT 228 X10^3/uL (150.0-450.0); RED BLOOD COUNT 5.36 X10^6/uL (4.7-6.0); RED CELL DISTRIBUTION WIDTH 13.8 % (11.6-16.5); WHITE BLOOD COUNT 10.7 X10^3/uL (3.6-10.0)
[2019-03-05 19:19] VITALS: BMI 40.6
[2019-03-05] MEDS: NS 1000 ML 1,000 ML IV SCH (19:22)
[2019-03-05 19:42] LABS: ALANINE AMINOTRANSFERASE 21 Units/L (12-78); ALBUMIN 3.8 g/dL (3.4-5.0); ALKALINE PHOSPHATASE 60 Units/L (46-116); ASPARTATE AMINO TRANSFERASE 20 Units/L (15-37); BLOOD UREA NITROGEN 19 mg/dL (7-18); CHLORIDE 105 mmol/L (98-107); CREATINE KINASE 100 Units/L (39-308); CREATINE KINASE MB < 1.0 ng/mL (0-4.0); CREATININE 1.12 mg/dL (0.70-1.30); MAGNESIUM 1.8 mg/dL (1.7-2.9); SODIUM 142 mmol/L (136-145); TOTAL PROTEIN 7.4 g/dL (6.4-8.2); TROPONIN I < 0.02 ng/mL (0-1.5); eGFR NON BLACK RACES > 60 (>60)
[2019-03-05 19:55] LABS: BAND NEUTROPHILS % 5 % (0-10); BASOPHILS % (MANUAL) 1 % (0-1); PLATELET MORPHOLOGY COMMENT NORMAL (NORMAL)
[2019-03-05] MEDS ORDERED: HEPARIN SODIUM INJ 5000 UNITS ONE (20:11)
[2019-03-05] MEDS: HEPARIN SODIUM IN D5W 25,000 UNITS/500 ML BAG IV PRN (20:20)
[2019-03-05] MEDS: COUMADIN TAB 5 MG PO SCH (20:46)
[2019-03-05] MEDS: CRESTOR TAB 10 MG PO SCH ×2 (20:47→20:54)
--- NOTE | 2019-03-05 21:39 | RAD ---
CHEST, 1 VIEWHISTORY: A FIB, CHEST DISCOMFORT, BIT SOBStudy: Single view of the chest.Comparison:NoneFindings:The cardiomediastinal silhouette is normal.No focal consolidations, pleural effusions or pneumothorax. Osseous structures demonstrate no acute abnormality.IMPRESSION:1. No acute cardiopulmonary process.Electronically signed by: ANASTASIYA THURMAN (Mar 05, 2019 21:38:45)
[2019-03-06 00:52] LABS: CKMB % 1.5 % (<4); CREATINE KINASE 67 Units/L (39-308); CREATINE KINASE MB < 1.0 ng/mL (0-4.0); TROPONIN I < 0.02 ng/mL (0-1.5)
[2019-03-06 05:32] LABS: BASOPHILS # (AUTO) 0.1 X10^3/uL (0.0-0.1); EOSINOPHILS # (AUTO) 0.1 x10^3/uL (0.0-0.2); EOSINOPHILS % (AUTO) 1.8 % (0.9-2.9); LYMPHOCYTES # (AUTO) 2.2 X10^3/uL (1.3-2.9); LYMPHOCYTES % (AUTO) 27.5 % (21.0-51.0); MEAN CORPUSCULAR HEMOGLOBIN 31.3 pg (27.0-34.0); MEAN CORPUSCULAR HGB CONC 34.9 g/dL (33.0-35.0); MEAN CORPUSCULAR VOLUME 89.5 fL (80.0-100.0); MEAN PLATELET VOLUME 7.9 fL (7.4-11.0); MONOCYTES # (AUTO) 0.7 x10^3/uL (0.3-0.8); MONOCYTES % (AUTO) 8.1 % (0.0-13.0); NEUTROPHILS % (AUTO) 61.6 % (42.0-75.0); PLATELET COUNT 195 X10^3/uL (150.0-450.0); RED CELL DISTRIBUTION WIDTH 13.6 % (11.6-16.5); WHITE BLOOD COUNT 8.1 X10^3/uL (3.6-10.0)
[2019-03-06 05:43] LABS: ALANINE AMINOTRANSFERASE 19 Units/L (12-78); ALBUMIN 3.2 g/dL (3.4-5.0); ALKALINE PHOSPHATASE 54 Units/L (46-116); ASPARTATE AMINO TRANSFERASE 12 Units/L (15-37); BLOOD UREA NITROGEN 17 mg/dL (7-18); CALCIUM 8.4 mg/dL (8.5-10.1); CARBON DIOXIDE 30.2 mmol/L (21-32); CHLORIDE 106 mmol/L (98-107); CKMB % 1.7 % (<4); COR NA(FOR HYPERGLY) 143 mmol/L (136-145); CREATINE KINASE 60 Units/L (39-308); CREATINE KINASE MB < 1.0 ng/mL (0-4.0); CREATININE 1.07 mg/dL (0.70-1.30); SODIUM 142 mmol/L (136-145); TOTAL PROTEIN 6.5 g/dL (6.4-8.2); TROPONIN I < 0.02 ng/mL (0-1.5); eGFR NON BLACK RACES > 60 (>60)
[2019-03-06] MEDS: NS 1000 ML 1,000 ML IV SCH ×3 (06:32→18:45)
[2019-03-06] MEDS: HEPARIN SODIUM IN D5W 25,000 UNITS/500 ML BAG IV PRN ×2 (09:34→15:41)
[2019-03-06] MEDS: ZESTORETIC 20/25 MG PO SCH (12:29)
[2019-03-06] MEDS: VITAMIN D3 PO SCH (12:30)
[2019-03-06] MEDS ORDERED: HEPARIN SODIUM INJ 5000 UNITS IVP NR (15:19)
[2019-03-06] MEDS: COUMADIN TAB 5 MG PO SCH (20:54)
--- NOTE | 2019-03-06 21:59 | DR.UPDATE ---
H&P Update History and Physical Update: History and Physical reviewed and patient examined. Changes noted: Yes with the following: PRESENTED TO THE OFFICE FOR COMPLAINTS OF FATIGUE, SHORTNESS OF BREATH, CHEST PAIN, AND HYPERTENSION. EXAMINATION REVEALED ATRIAL FIBRILLATION. HE WAS ADMITTED TO THE INTENSIVE CARE UNIT FOR FURTHER EVALUATION AND TREATMENT OF NEW ONSET A-FIB AND CHEST PAIN RULE OUT ACUTE [place]. ON ADMISSION, WE OBTAINED LABS. ABNORMAL LAB VALUES INCLUDE THE FOLLOWING: WBC 10.7, BUN 19, GLUCOSE 107, TOTAL BILI 1.50. CARDIAC ENZYMES WITHIN NORMAL LIMITS. CHEST XRAY REVEALED: NO ACUTE CARDIOPULMONARY PROCESS. EKG REVEALED: ATRIAL FIBRILLATION IWHT HR 94. HE WAS STARTED ON A HEPARIN DRIP, NORMAL SALINE AT 80ML/HR, COUMADIN 5MG PO HS, AND CRESTOR 20MG PO HS. TODAY, WE WILL CONTINUE WITH CURRENT PLAN OF CARE. OTHERWISE, WE PLAN TO FOLLOW UP WITH AM LABS AND CONTINUE TO MONITOR. Prescription drug monitoring program results: PDMP was not reviewed H&P Reviewed: Yes Patient was examined?: Yes
[2019-03-07] MEDS: NS 1000 ML 1,000 ML IV SCH ×3 (01:29→09:58)
[2019-03-07 04:50] LABS: BASOPHILS # (AUTO) 0.1 X10^3/uL (0.0-0.1); BASOPHILS % (AUTO) 1.3 % (0.2-1.0); EOSINOPHILS # (AUTO) 0.1 x10^3/uL (0.0-0.2); EOSINOPHILS % (AUTO) 1.4 % (0.9-2.9); HEMATOCRIT 42.6 % (42.0-54.0); HEMOGLOBIN 14.9 g/dL (13.5-18.0); LYMPHOCYTES # (AUTO) 1.9 X10^3/uL (1.3-2.9); LYMPHOCYTES % (AUTO) 21.8 % (21.0-51.0); MEAN CORPUSCULAR HEMOGLOBIN 30.8 pg (27.0-34.0); MEAN CORPUSCULAR HGB CONC 34.9 g/dL (33.0-35.0); MEAN CORPUSCULAR VOLUME 88.3 fL (80.0-100.0); MEAN PLATELET VOLUME 7.4 fL (7.4-11.0); MONOCYTES # (AUTO) 0.7 x10^3/uL (0.3-0.8); MONOCYTES % (AUTO) 7.9 % (0.0-13.0); NEUTROPHILS % (AUTO) 67.6 % (42.0-75.0); PLATELET COUNT 183 X10^3/uL (150.0-450.0); RED BLOOD COUNT 4.83 X10^6/uL (4.7-6.0); RED CELL DISTRIBUTION WIDTH 13.8 % (11.6-16.5); WHITE BLOOD COUNT 8.9 X10^3/uL (3.6-10.0)
[2019-03-07 04:56] LABS: ALANINE AMINOTRANSFERASE 20 Units/L (12-78); ALBUMIN 3.1 g/dL (3.4-5.0); ALKALINE PHOSPHATASE 54 Units/L (46-116); ASPARTATE AMINO TRANSFERASE 17 Units/L (15-37); BLOOD UREA NITROGEN 15 mg/dL (7-18); CALCIUM 8.4 mg/dL (8.5-10.1); CHLORIDE 105 mmol/L (98-107); COR CA(FOR HYPOALB) 9.1 mg/dL (8.5-10.1); COR NA(FOR HYPERGLY) 143 mmol/L (136-145); SODIUM 142 mmol/L (136-145); TOTAL PROTEIN 6.4 g/dL (6.4-8.2); eGFR NON BLACK RACES > 60 (>60)
[2019-03-07] MEDS: HEPARIN SODIUM IN D5W 25,000 UNITS/500 ML BAG IV PRN (06:25)
[2019-03-07] MEDS: ZESTORETIC 20/25 MG PO SCH (08:28)
[2019-03-07] MEDS: VITAMIN D3 PO SCH (08:28)
[2019-03-07 10:32] VITALS: BP 136/82
[2019-03-07] MEDS ORDERED: LOVENOX INJ 100 MG SYR SC SCH (11:00)
== END 2019-03-07 10:25 | disposition home or self-care (01) | DRG 310 ==
LOC: ICU 18:13
PROVIDERS: ADMIT Internal Medicine; ATTEND Internal Medicine
DX: Z79.01 Long term (current) use of anticoagulants; E78.2 Mixed hyperlipidemia; R06.02 Shortness of breath; I10 Essential (primary) hypertension; R07.89 Other chest pain; R94.31 Abnormal electrocardiogram [ECG] [EKG]; R53.83 Other fatigue; I48.91 Unspecified atrial fibrillation
CPT/HCPCS: 36415; 71010; 71045; 80053; 82550; 82553; 83735; 84484; 85025; 85610; 85730; 93005; A4216; A4222; J1644; J1650; J7030